=== PATIENT | female | born 1995 | race Caucasian/White ===

== ENCOUNTER → 2017-05-31 | Outpatient (REF) | payer OTHER | LOC: M SFHCLERA 13:53 | PROVIDERS: ATTEND Nurse Practitioner Family | DX: R10.9 Unspecified abdominal pain (principal) ==

== ENCOUNTER 2017-07-20 15:36 | Emergency (ER) | payer OTHER ==
[~2017-07-20] VITALS: Ht 167.6 cm; Wt 80.7 kg
[2017-07-20 15:37] VITALS: BP 145/64
== END 2017-07-20 19:02 | disposition home or self-care (01) ==
LOC: M ED 15:36
DX: J06.9 Acute upper respiratory infection, unspecified (principal); H69.81 Other specified disorders of Eustachian tube, right ear

== ENCOUNTER → 2017-08-24 | Outpatient (REF) | payer OTHER | LOC: M SFHCPLAZ 15:50 | PROVIDERS: ATTEND Nurse Practitioner Family | DX: R35.0 Frequency of micturition (principal); Z11.3 Encounter for screening for infections with a predominantly sexual mode of transmission ==

== ENCOUNTER 2017-09-07 11:08 | Emergency (ER) | payer OTHER ==
[~2017-09-07] VITALS: Ht 167.6 cm; Wt 76.8 kg
[2017-09-07] MEDS ORDERED: PRENTAB55 PO (11:14)
[2017-09-07] MEDS ORDERED: METOCLOPRAMIDE INJ 10MG/2ML VIAL (J2765) IV ONE (11:45)
[2017-09-07] MEDS ORDERED: NS 1,000 ML IV ONE (11:45)
[2017-09-07 11:53] LABS: BASO % 0.4 % (0.0-1.0); EOS # 0.1 10^3/uL (0.0-0.50); EOS % 0.8 % (0.0-3.0); IMMATURE GRANULOCYTE % 0.2 % (0-0); LYMPH # 2.9 10^3/uL (1.5-6.5); LYMPH % 29.9 % (24.0-44.0); MEAN CORPUSCULAR HEMOGLOBIN 30.2 pg (27.0-33.0); MEAN CORPUSCULAR HGB CONC 34.1 g/dl (32.0-36.5); MEAN CORPUSCULAR VOLUME 88.5 fl (80.0-96.0); MONO # 0.6 10^3/uL (0.0-0.8); MONO % 5.9 % (0.0-5.0); NEUTROPHILS # 6.1 10^3/uL (1.8-7.7); NEUTROPHILS % 62.8 % (36.0-66.0); PLATELET COUNT, AUTOMATED 313 10^3/uL (150-450); RED CELL DISTRIBUTION WIDTH 12.5 % (11.5-14.5); WHITE BLOOD COUNT 9.7 10^3/uL (4.0-10.0)
[2017-09-07 12:35] LABS: ALBUMIN 3.8 GM/DL (3.2-5.2); ALBUMIN/GLOBULIN RATIO 1.09 (1.00-1.93); ALKALINE PHOSPHATASE 74 U/L (45-117); ALT/SGPT 11 U/L (12-78); ANION GAP 7 MEQ/L (8-16); AST/SGOT 9 U/L (7-37); BILIRUBIN,TOTAL 0.5 MG/DL (0.2-1.0); BLOOD UREA NITROGEN 7 MG/DL (7-18); CALCIUM LEVEL 9.1 MG/DL (8.5-10.1); CARBON DIOXIDE LEVEL 28 MEQ/L (21-32); CHLORIDE LEVEL 103 MEQ/L (98-107); CREATININE FOR GFR 0.69 MG/DL (0.55-1.02); GLOMERULAR FILTRATION RATE > 60.0 (>60); GLUCOSE, FASTING 79 MG/DL (70-105); HCG, SERUM QUANTITATIVE 46908 MIU/ML; SODIUM LEVEL 138 MEQ/L (136-145); TOTAL PROTEIN 7.3 GM/DL (6.4-8.2)
--- NOTE | 2017-09-07 12:35 | REP ---
First trimester obstetric ultrasound, emergency room request: The study is performed with transabdominal Doppler ultrasound assessment. There are no comparisons. There is an intrauterine gestational sac with a pole. The heart rate is 126 beats per minute. The pole crown-rump length is 0.7 cm corresponding to 6 weeks 4 days gestational age. The RYAN is 04/29/2018. No subchorionic hematoma is identified. The right and left ovaries are normal size. The Doppler resistive index of the intraparenchymal arteries of the left ovary is 0.70 indicating vascular flow in the left ovary. There is no Doppler assessment of the right ovary for reasons known to this examiner. Depending on symptomatology consideration might be given for Doppler assessment of the right ovary. There is no free fluid in the pelvis. Signed by James Marcos MD 09/07/2017 12:27 P
[2017-09-07] MEDS ORDERED: DRAM50TA7 PO (12:53)
[2017-09-07 13:00] VITALS: BP 107/56
== END 2017-09-07 13:10 | disposition home or self-care (01) ==
LOC: M ED 11:08
DX: R11.2 Nausea with vomiting, unspecified (principal)
CPT/HCPCS: 76801; 80053; 81025; 84702; 85025; 93976; 96374; 99284; J2765

== ENCOUNTER → 2017-10-07 | Outpatient (REF) | payer OTHER | LOC: M LAB REF 12:57 | DX: R30.0 Dysuria (principal) ==

== ENCOUNTER 2017-10-11 11:31 | Emergency (ER) | payer OTHER ==
[2017-10-11] MEDS: AZITHROMYCIN 250 MG TAB PO ×2 (13:00)
[2017-10-11] MEDS: cefTRIAXone SOD 250 MG VIAL (J0696) IM ×2 (13:00)
[2017-10-11 16:00] LABS: CHLAMYDIA DNA AMPLIFICATION NEGATIVE (NEGATIVE); GC DNA AMPLIFICATION POSITIVE (NEGATIVE)
== END 2017-10-11 14:04 | disposition home or self-care (01) ==
LOC: M ED 11:31
DX: Z20.2 Contact with and (suspected) exposure to infections with a predominantly sexual mode of transmission (principal); Z3A.00 Weeks of gestation of pregnancy not specified
CPT/HCPCS: J0696

== ENCOUNTER 2018-01-19 18:45 | Emergency (ER) | payer OTHER ==
[2018-01-19] MEDS: valACYclovir HCL 500 MG TAB PO (21:40)
[2018-01-19] MEDS: NORCO 5/325MG TABLET (BULK FOR ED) PO (21:54)
== END 2018-01-19 21:55 | disposition home or self-care (01) ==
LOC: M ED 18:45
DX: A60.09 Herpesviral infection of other urogenital tract (principal)
CPT/HCPCS: 87252

== ENCOUNTER → 2018-03-21 | Outpatient (REF) | payer OTHER ==
[2018-03-21 16:51] LABS: HEMATOCRIT 41.9 % (36.0-47.0); HEMOGLOBIN 13.7 g/dl (12.0-15.5); MEAN CORPUSCULAR HEMOGLOBIN 30.6 pg (27.0-33.0); MEAN CORPUSCULAR HGB CONC 32.7 g/dl (32.0-36.5); MEAN CORPUSCULAR VOLUME 93.5 fl (80.0-96.0); PLATELET COUNT, AUTOMATED 291 10^3/uL (150-450); RED BLOOD COUNT 4.48 10^6/uL (4.00-5.40); RED CELL DISTRIBUTION WIDTH 12.8 % (11.5-14.5); WHITE BLOOD COUNT 8.6 10^3/uL (4.0-10.0)
[2018-03-21 17:10] LABS: ALBUMIN 3.8 GM/DL (3.2-5.2); ALBUMIN/GLOBULIN RATIO 1.19 (1.00-1.93); ALKALINE PHOSPHATASE 69 U/L (45-117); ALT/SGPT 14 U/L (12-78); ANION GAP 7 MEQ/L (8-16); AST/SGOT 6 U/L (7-37); BILIRUBIN,TOTAL 0.2 MG/DL (0.2-1.0); BLOOD UREA NITROGEN 9 MG/DL (7-18); CALCIUM LEVEL 8.6 MG/DL (8.5-10.1); CARBON DIOXIDE LEVEL 27 MEQ/L (21-32); CHLORIDE LEVEL 110 MEQ/L (98-107); CREATININE FOR GFR 0.79 MG/DL (0.55-1.30); FREE T4 0.94 NG/DL (0.76-1.46); GLOMERULAR FILTRATION RATE > 60.0 (>60); GLUCOSE, FASTING 83 MG/DL (70-100); POTASSIUM SERUM 4.8 MEQ/L (3.5-5.1); SODIUM LEVEL 144 MEQ/L (136-145); THYROID STIMULATING HORMONE 0.212 uIU/ML (0.358-3.740)
== END ==
LOC: M SFHCPLAZ 11:22
DX: F33.2 Major depressive disorder, recurrent severe without psychotic features (principal); N92.1 Excessive and frequent menstruation with irregular cycle
CPT/HCPCS: 84443

== ENCOUNTER 2018-03-29 02:40 | Emergency (ER) | payer OTHER ==
[2018-03-29] MEDS: NS 1,000 ML IV (03:09)
[2018-03-29] MEDS: ONDANSETRON 4MG/2ML VIAL (J2405) IV (03:10)
[2018-03-29 03:17] LABS: HEMOGLOBIN 15.1 g/dl (12.0-15.5); MEAN CORPUSCULAR HEMOGLOBIN 30.2 pg (27.0-33.0); MEAN CORPUSCULAR HGB CONC 33.6 g/dl (32.0-36.5); PLATELET COUNT, AUTOMATED 309 10^3/uL (150-450); RED CELL DISTRIBUTION WIDTH 12.4 % (11.5-14.5); WHITE BLOOD COUNT 8.7 10^3/uL (4.0-10.0)
[2018-03-29 03:31] LABS: CONTROL LINE HCG INT CTR LINE PRESENT; HCG, SERUM QUALITATIVE NEGATIVE (NEGATIVE)
[2018-03-29 03:45] LABS: ALBUMIN 4.1 GM/DL (3.2-5.2); ALBUMIN/GLOBULIN RATIO 1.28 (1.00-1.93); ALKALINE PHOSPHATASE 74 U/L (45-117); ALT/SGPT 14 U/L (12-78); ANION GAP 12 MEQ/L (8-16); AST/SGOT 7 U/L (7-37); BILIRUBIN,DIRECT < 0.1 MG/DL (0.0-0.2); BILIRUBIN,TOTAL 0.5 MG/DL (0.2-1.0); BLOOD UREA NITROGEN 7 MG/DL (7-18); CALCIUM LEVEL 8.4 MG/DL (8.5-10.1); CARBON DIOXIDE LEVEL 23 MEQ/L (21-32); CHLORIDE LEVEL 112 MEQ/L (98-107); CREATININE FOR GFR 0.85 MG/DL (0.55-1.30); GLOMERULAR FILTRATION RATE > 60.0 (>60); GLUCOSE, FASTING 98 MG/DL (70-100); POTASSIUM SERUM 3.3 MEQ/L (3.5-5.1); SALICYLATE LEVEL 1.9 MG/DL (5.0-30.0); SODIUM LEVEL 147 MEQ/L (136-145); THYROID STIMULATING HORMONE 0.411 uIU/ML (0.358-3.740); TOTAL PROTEIN 7.3 GM/DL (6.4-8.2)
[2018-03-29 03:50] LABS: ACETAMINOPHEN LEVEL < 2.0 UG/ML (10.0-30.0)
[2018-03-29] MEDS: POTASSIUM CHLORIDE 10 MEQ SR TABLET PO (05:28)
[2018-03-29 06:06] LABS: AMPHETAMINES LEVEL URINE NEGATIVE (NEGATIVE); BARBITURATES URINE NEGATIVE (NEGATIVE); BENZODIAZEPINES URINE NEGATIVE (NEGATIVE); CANNABINOIDS URINE POSITIVE (NEGATIVE); COCAINE METABOLITE URINE NEGATIVE (NEGATIVE); METHADONE URINE NEGATIVE (NEGATIVE); OPIATES URINE NEGATIVE (NEGATIVE); PHENCYCLIDINE URINE NEGATIVE (NEGATIVE)
== END 2018-03-29 09:24 | disposition home or self-care (01) ==
LOC: M ED 02:40
DX: F10.229 Alcohol dependence with intoxication, unspecified (principal)
CPT/HCPCS: J2405

== ENCOUNTER → 2018-04-05 | Outpatient (REF) | payer OTHER ==
[2018-04-05 15:56] LABS: ANION GAP 5 MEQ/L (8-16); BLOOD UREA NITROGEN 10 MG/DL (7-18); CALCIUM LEVEL 8.6 MG/DL (8.5-10.1); CARBON DIOXIDE LEVEL 29 MEQ/L (21-32); CHLORIDE LEVEL 108 MEQ/L (98-107); CREATININE FOR GFR 0.78 MG/DL (0.55-1.30); FREE T4 0.92 NG/DL (0.76-1.46); GLOMERULAR FILTRATION RATE > 60.0 (>60); GLUCOSE, FASTING 81 MG/DL (70-100); POTASSIUM SERUM 4.4 MEQ/L (3.5-5.1); SODIUM LEVEL 142 MEQ/L (136-145); THYROID PEROXIDASE ANTIBODY < 28.0 U/ML (<60.0); THYROID STIMULATING HORMONE 0.281 uIU/ML (0.358-3.740); TOTAL T3 111.4 NG/DL (60.0-181.0)
== END ==
LOC: M SFHCPLAZ 12:28
DX: E05.90 Thyrotoxicosis, unspecified without thyrotoxic crisis or storm (principal); E87.6 Hypokalemia
CPT/HCPCS: 84443

== ENCOUNTER 2018-04-14 12:45 | Emergency (ER) | payer OTHER ==
[2018-04-14 14:04] LABS: KETONE, URINE AUTO RFX NEGATIVE (NEGATIVE); LEUKOCYTE ESTERASE UR AUTO RFX NEGATIVE (NEGATIVE); MUCUS, URINE RFX SMALL (NEGATIVE); NITRITE, URINE AUTO RFX NEGATIVE (NEGATIVE); RBC, URINE AUTO RFX 1 /HPF (0-3); SPECIFIC GRAVITY UR AUTO RFX 1.023 (1.002-1.035); SQUAM EPITHELIAL CELL UR AURFX 2 /HPF (0-6); WBC, URINE AUTO RFX 0 /HPF (0-3)
[2018-04-14 14:20] LABS: BASO # 0.1 10^3/uL (0.0-0.2); BASO % 0.7 % (0.0-1.0); EOS # 0.2 10^3/uL (0.0-0.50); EOS % 2.4 % (0.0-3.0); HEMATOCRIT 41.1 % (36.0-47.0); HEMOGLOBIN 13.5 g/dl (12.0-15.5); IMMATURE GRANULOCYTE % 0.3 % (0-3.0); LYMPH # 3.1 10^3/uL (1.5-6.5); LYMPH % 41.1 % (24.0-44.0); MEAN CORPUSCULAR HEMOGLOBIN 30.5 pg (27.0-33.0); MEAN CORPUSCULAR HGB CONC 32.8 g/dl (32.0-36.5); MONO # 0.5 10^3/uL (0.0-0.8); NEUTROPHILS # 3.7 10^3/uL (1.8-7.7); NEUTROPHILS % 49.5 % (36.0-66.0); PLATELET COUNT, AUTOMATED 271 10^3/uL (150-450); RED BLOOD COUNT 4.42 10^6/uL (4.00-5.40); RED CELL DISTRIBUTION WIDTH 12.9 % (11.5-14.5); WHITE BLOOD COUNT 7.5 10^3/uL (4.0-10.0)
[2018-04-14 14:37] LABS: ANION GAP 5 MEQ/L (8-16); BLOOD UREA NITROGEN 10 MG/DL (7-18); CALCIUM LEVEL 8.6 MG/DL (8.5-10.1); CARBON DIOXIDE LEVEL 28 MEQ/L (21-32); CHLORIDE LEVEL 110 MEQ/L (98-107); CREATININE FOR GFR 0.79 MG/DL (0.55-1.30); GLOMERULAR FILTRATION RATE > 60.0 (>60); GLUCOSE, FASTING 87 MG/DL (70-100); POTASSIUM SERUM 4.4 MEQ/L (3.5-5.1); SODIUM LEVEL 143 MEQ/L (136-145)
== END 2018-04-14 16:22 | disposition home or self-care (01) ==
LOC: M ED 12:45
DX: N93.8 Other specified abnormal uterine and vaginal bleeding (principal); F41.9 Anxiety disorder, unspecified; F33.9 Major depressive disorder, recurrent, unspecified; Z79.899 Other long term (current) drug therapy
CPT/HCPCS: 76856

== ENCOUNTER → 2018-10-19 | Outpatient (REF) | payer OTHER ==
[~2018-10-19] MED LIST: BUPR150T3 PO; DRAM50TA7 PO; KLOR20TA42 FT; PRENTAB55 PO; VALT1TAB PO; [UNRECOGNIZED DRUG - CODE] OR
[2018-10-19 18:22] LABS: BASO # 0.1 10^3/uL (0.0-0.2); BASO % 0.5 % (0.0-1.0); EOS # 0.1 10^3/uL (0.0-0.50); EOS % 0.7 % (0.0-3.0); HEMATOCRIT 40.2 % (36.0-47.0); HEMOGLOBIN 13.8 g/dl (12.0-15.5); LYMPH # 3.4 10^3/uL (1.5-6.5); LYMPH % 27.1 % (24.0-44.0); MEAN CORPUSCULAR HEMOGLOBIN 30.6 pg (27.0-33.0); MEAN CORPUSCULAR HGB CONC 34.3 g/dl (32.0-36.5); MEAN CORPUSCULAR VOLUME 89.1 fl (80.0-96.0); MONO # 0.8 10^3/uL (0.0-0.8); MONO % 6.1 % (0.0-5.0); NEUTROPHILS # 8.2 10^3/uL (1.8-7.7); NEUTROPHILS % 65.3 % (36.0-66.0); PLATELET COUNT, AUTOMATED 297 10^3/uL (150-450); RED BLOOD COUNT 4.51 10^6/uL (4.00-5.40); WHITE BLOOD COUNT 12.6 10^3/uL (4.0-10.0)
[2018-10-19 18:40] LABS: FREE T4 1.11 NG/DL (0.76-1.46); THYROID STIMULATING HORMONE 0.064 uIU/ML (0.358-3.740)
[2018-10-19 20:52] LABS: CHLAMYDIA DNA AMPLIFICATION NEGATIVE (NEGATIVE); GC DNA AMPLIFICATION NEGATIVE (NEGATIVE)
[2018-10-20 10:41] LABS: RUBELLA IgG QUALITATIVE IMMUNE (IMMUNE)
[2018-10-20 11:11] LABS: HIV 1&2 SCREEN CENTAUR NEGATIVE (NEGATIVE)
== END ==
LOC: M LAB REF 17:01
PROVIDERS: ATTEND Advanced Practice Midwife
DX: Z3A.09 9 weeks gestation of pregnancy (principal)

== ENCOUNTER 2018-10-22 10:57 | Emergency (ER) | payer OTHER ==
[~2018-10-22] VITALS: Ht 167.6 cm; Wt 73.6 kg
[2018-10-22] MEDS ORDERED: PRENTAB55 PO (11:01)
[2018-10-22 12:00] VITALS: BP 118/60
== END 2018-10-22 12:05 | disposition home or self-care (01) ==
LOC: M ED 10:57
DX: S83.006A Unspecified dislocation of unspecified patella, initial encounter (principal); W10.9XXA Fall (on) (from) unspecified stairs and steps, initial encounter; Y92.019 Unspecified place in single-family (private) house as the place of occurrence of the external cause

== ENCOUNTER → 2018-12-10 | Outpatient (REF) | payer OTHER ==
[~2018-12-10] MED LIST changes: +AMOX500C PO; +SM; +SM N120T
== END ==
LOC: M SFHCLERA 13:37
PROVIDERS: ATTEND Nurse Practitioner Family
DX: J00 Acute nasopharyngitis [common cold] (principal)

== ENCOUNTER 2018-12-14 11:16 | Emergency (ER) | payer OTHER ==
[~2018-12-14] VITALS: Ht 167.6 cm; Wt 75.2 kg
[~2018-12-14 11:16] MED LIST changes: -AMOX500C PO; -SM; -SM N120T
[2018-12-14] MEDS ORDERED: SM (11:22)
[2018-12-14] MEDS ORDERED: SM N120T (11:22)
[2018-12-14 12:31] LABS: INFLUENZA A AMPLIFICATION NEGATIVE (NEGATIVE); INFLUENZA B AMPLIFICATION NEGATIVE (NEGATIVE)
[2018-12-14] MEDS ORDERED: AMOX500C PO (13:21)
[2018-12-14 13:27] VITALS: BP 116/68
== END 2018-12-14 13:28 | disposition home or self-care (01) ==
LOC: M ED 11:16
DX: O99.512 Diseases of the respiratory system complicating pregnancy, second trimester (principal); J01.90 Acute sinusitis, unspecified; O99.89 Other specified diseases and conditions complicating pregnancy, childbirth and the puerperium; H65.01 Acute serous otitis media, right ear; Z3A.18 18 weeks gestation of pregnancy; Z79.899 Other long term (current) drug therapy

== ENCOUNTER 2019-01-21 16:04 | Emergency (ER) | payer OTHER ==
[~2019-01-21] VITALS: Ht 167.6 cm; Wt 77.3 kg
[~2019-01-21 16:04] MED LIST changes: +AMOX500C PO; +SM; +SM N120T
--- NOTE | 2019-01-21 17:42 | REPVR ---
EXAM: US Soft Tissue Head and Neck, Non Thyroid EXAM DATE/TIME: 01/21/2019 5:02 PM CLINICAL HISTORY: 23 years old, female; Neck pain; Patient HX: Lump & redness on left side of neck, no drainage noted; Additional info: RO abscess, left side neck TECHNIQUE: Imaging protocol: Real-time ultrasound scan of the soft tissues of the left neck with image documentation. COMPARISON: No relevant prior studies available. FINDINGS: Soft tissues: Imaging of the lateral aspect of the left neck in the area of palpable abnormality demonstrates a well-circumscribed hypoechoic complex density within the subcutaneous fat measuring 1.1 x 0.6 x 1.0cm. No significant internal vascularity demonstrated on color flow Doppler. IMPRESSION: Complex hypoechoic nodule in the soft tissues of the lateral neck as described above. Considerations include a lymph node, small abscess, or apocrine retention cyst (infected or noninfected). Electronically signed by: Justice Trivedi On 01/21/2019 17:42:22 PM
[2019-01-21] MEDS ORDERED: KEFL500C17 PO (18:21)
[2019-01-21] MEDS ORDERED: CEPHALEXIN 500 MG CAP PO ONE (18:30)
[2019-01-21 18:36] VITALS: BP 109/59
--- NOTE | 2019-01-22 09:05 | ED PDOC ---
Post-Departure Follow-Up joce thomas faxed formal report of thyroid us for fu Alex Joseph MD Jan 22, 2019 09:05
== END 2019-01-21 18:37 | disposition home or self-care (01) ==
LOC: M ED 16:04
DX: O99.712 Diseases of the skin and subcutaneous tissue complicating pregnancy, second trimester (principal); L03.221 Cellulitis of neck; R22.1 Localized swelling, mass and lump, neck; Z3A.23 23 weeks gestation of pregnancy; E05.00 Thyrotoxicosis with diffuse goiter without thyrotoxic crisis or storm

== ENCOUNTER → 2019-02-08 | Outpatient (CLI) | payer OTHER ==
[~2019-02-08] MED LIST changes: +KEFL500C17 PO
--- NOTE | 2019-02-09 16:29 | REP ---
Clinical: Anatomical evaluation. Comparison: 12/13/2018 . Findings: Examination demonstrates a single live intrauterine in transverse (head to maternal left) presentation. motion is identified by technologist. Placenta is noted posterior fundal and grade grade 1 without evidence for placenta previa or abruption. Amniotic fluid volume is normal. Cervix measures 4.2 cm in length and appears closed. Nuchal cord cannot be excluded. Gestational age by LMP 26 weeks 4 days with RYAN 05/13/2019 . Gestational age by current measurements 20 weeks 2 days with RYAN 05/15/2019 . FHR equals 167 beats per minute. Estimated weight 909 grams ( 33rd percentile). Anatomical assessment demonstrates normal structures including cranium, choroid plexus, cavum, cerebellum/posterior fossa, facial features, lungs, four-chamber heart/ventricular outflow tracts, diaphragm, stomach, cord insertion/three-vessel cord, kidneys/bladder, spine, and extremities. Impression: 1. Single live intrauterine in transverse lie demonstrating appropriate interval growth. Anatomical assessment is complete and normal. 2. Nuchal cord cannot be excluded. Electronically Signed by Dmitir Beach MD 02/09/2019 04:21 P
== END ==
LOC: M RAD 13:30
PROVIDERS: ATTEND Advanced Practice Midwife
DX: Z36.89 Encounter for other specified antenatal screening (principal); Z3A.20 20 weeks gestation of pregnancy

== ENCOUNTER → 2019-02-26 | Outpatient (REF) | payer OTHER, MEDICAID | LOC: M LAB REF 17:06 | PROVIDERS: ATTEND Advanced Practice Midwife | DX: O99.282 Endocrine, nutritional and metabolic diseases complicating pregnancy, second trimester (principal); Z3A.00 Weeks of gestation of pregnancy not specified ==

== ENCOUNTER → 2019-02-26 | Outpatient (CLI) | payer OTHER ==
[2019-02-26 17:25] LABS: FREE T4 0.82 NG/DL (0.76-1.46); THYROID STIMULATING HORMONE 0.693 uIU/ML (0.358-3.740)
[2019-02-26 17:27] LABS: HEMATOCRIT 35.9 % (36.0-47.0); HEMOGLOBIN 11.7 g/dl (12.0-15.5); MEAN CORPUSCULAR HEMOGLOBIN 32.2 pg (27.0-33.0); MEAN CORPUSCULAR HGB CONC 32.6 g/dl (32.0-36.5); MEAN CORPUSCULAR VOLUME 98.9 fl (80.0-96.0); PLATELET COUNT, AUTOMATED 234 10^3/uL (150-450); RED BLOOD COUNT 3.63 10^6/uL (4.00-5.40); WHITE BLOOD COUNT 11.3 10^3/uL (4.0-10.0)
== END ==
LOC: M SMT 13:24
PROVIDERS: ATTEND Advanced Practice Midwife
DX: O99.282 Endocrine, nutritional and metabolic diseases complicating pregnancy, second trimester (principal); Z3A.00 Weeks of gestation of pregnancy not specified

== ENCOUNTER 2019-03-29 17:28 | Outpatient (CLI) | payer OTHER, MEDICAID ==
[~2019-03-29] VITALS: Ht 167.6 cm; Wt 90.5 kg
[2019-03-29 17:42] VITALS: BP 116/70
[2019-03-29] MEDS ORDERED: MAPA500T2 PO (17:43)
[2019-03-29 20:52] LABS: APPEARANCE, URINE CLOUDY (CLEAR); BACTERIA, URINE AUTO 2+ (NEGATIVE); BILIRUBIN, URINE AUTO NEGATIVE (NEGATIVE); BLOOD, URINE BLOOD NEGATIVE (NEGATIVE); COLOR, URINE YELLOW (YELLOW); GLUCOSE, URINE (UA) AUTO NEGATIVE (NEGATIVE); KETONE, URINE AUTO TRACE mg/dL (NEGATIVE); LEUKOCYTE ESTERASE, URINE AUTO 3+ (NEGATIVE); MUCUS, URINE SMALL (NEGATIVE); NITRITE, URINE AUTO NEGATIVE (NEGATIVE); PROTEIN, URINE AUTO NEGATIVE (NEGATIVE); RBC, URINE AUTO 3 /HPF (0-3); SPECIFIC GRAVITY URINE AUTO 1.013 (1.002-1.035); SQUAMOUS EPITHELIAL CELL UR AU 41 /HPF (0-6); UROBILINOGEN, URINE AUTO 0.2 mg/dL (0.0-2.0); WBC, URINE AUTO 35 /HPF (0-3)
== END 2019-03-29 21:40 | disposition home or self-care (01) ==
LOC: M LDO 17:28
PROVIDERS: ATTEND Obstetrics & Gynecology
DX: O26.893 Other specified pregnancy related conditions, third trimester (principal); R10.2 Pelvic and perineal pain; Z3A.39 39 weeks gestation of pregnancy

== ENCOUNTER 2019-04-18 12:30 | Outpatient (RCR) | payer OTHER ==
[~2019-04-18 12:30] MED LIST changes: +MAPA500T2 PO
== END 2019-04-25 ==
LOC: M PT 12:30
PROVIDERS: ATTEND Advanced Practice Midwife
DX: O26.893 Other specified pregnancy related conditions, third trimester (principal); Z3A.33 33 weeks gestation of pregnancy; R10.2 Pelvic and perineal pain

== ENCOUNTER → 2019-04-24 | Outpatient (REF) | payer OTHER, MEDICAID | LOC: M LAB REF 16:57 | PROVIDERS: ATTEND Advanced Practice Midwife | DX: Z34.83 Encounter for supervision of other normal pregnancy, third trimester (principal) ==

== ENCOUNTER → 2019-04-24 | Outpatient (REF) | payer OTHER, MEDICAID ==
[2019-04-25 16:32] LABS: CHLAMYDIA DNA AMPLIFICATION NEGATIVE (NEGATIVE); GC DNA AMPLIFICATION NEGATIVE (NEGATIVE)
== END ==
LOC: M LAB REF 13:14
PROVIDERS: ATTEND Advanced Practice Midwife
DX: Z34.83 Encounter for supervision of other normal pregnancy, third trimester (principal)

== ENCOUNTER 2019-05-16 06:51 | Inpatient (IN) | payer OTHER, MEDICAID ==
[~2019-05-16] VITALS: Ht 167.6 cm; Wt 95.6 kg
[2019-05-16] VITALS (21 sets, daily range): BP systolic 100–133; BP diastolic 53–83
[2019-05-16] MEDS: miSOPROStol 50 MCG 1/2 TAB (S0191) PO SCH ×2 (08:06→12:17)
[2019-05-16 08:18] LABS: HEMATOCRIT 34.4 % (36.0-47.0); MEAN CORPUSCULAR HEMOGLOBIN 32.7 pg (27.0-33.0); MEAN CORPUSCULAR HGB CONC 34.9 g/dl (32.0-36.5); MEAN CORPUSCULAR VOLUME 93.7 fl (80.0-96.0); PLATELET COUNT, AUTOMATED 202 10^3/uL (150-450); RED BLOOD COUNT 3.67 10^6/uL (4.00-5.40); WHITE BLOOD COUNT 11.4 10^3/uL (4.0-10.0)
[2019-05-16] MEDS ORDERED: VALT1TAB PO (08:40)
--- NOTE | 2019-05-16 10:00 | HPE ---
DATE OF ADMISSION: 05/16/2019 Marie is a 23-year-old , 3, para 1-0-1-1, 39-1/7 weeks gestation, estimated date of confinement (EDC) of 05/22/2019, based on LNMP and confirmed by first trimester ultrasound. She presents to labor and delivery today for induction of labor due to social reasons. Her care was initiated at [facility] in the first trimester. Her course has been complicated by a reported history of hyperthyroid. She has been seen by endocrinology at [facility]. Her thyroid labs have been normal throughout her . HSV II, she started prophylactic treatment at approximately 37 weeks, and uncertain paternity; however, she does have a partner at bedside and he is supportive. She denies any contractions, vaginal bleeding, and leakage of fluid. Fetus has been active. PAST MEDICAL HISTORY: Hyperthyroid, per report; however, labs have been normal and she is not taking any medication. SURGERIES: Tonsillectomy. Elective termination of . FAMILY HISTORY: Cancer, thyroid disease, lupus, and MS. SOCIAL HISTORY: The patient is single. She does have a person present for support. She is a nonsmoker. Denies alcohol and drug use. She has a history of chlamydia and HSV II. She denies any history of abuse, physical, sexual, and emotional. ALLERGIES: No drug allergies. CURRENT MEDICATIONS: - valacyclovir 1 gram per day - vitamin OBJECTIVE: Temperature 97.6, pulse 103, respirations 18, blood pressure is 116/70. heart rate is 145, moderate variability, positive accelerations, no decelerations. She has an occasional contraction. Her abdomen is gravid, cephalic presentation. Estimated weight 7-1/2 pounds. STERILE VAGINAL EXAM: 2 cm, 50% effaced, -3 station. Very posterior, soft, scant show with exam. ASSESSMENT: Intrauterine at 39-1/7 weeks. heart rate category 1. PLAN: Admit patient to labor and delivery today for induction of labor. Routine labs. Out of bed ad david. Regular diet at this time. Start misoprostol 50 mcg by mouth for cervical ripening. The patient is desirous of an epidural once she is in active labor. I did review risks, benefits, and alternatives. The patient's questions have been answered. She has been verbally consented for emergency surgery and blood products if necessary. I do anticipate cervical ripening. I will consider artificial rupture of membranes (AROM) once she is comfortable with an epidural. CARLOS A
[2019-05-16] MEDS ORDERED: LACTATED RINGER'S 1000 ML IV ONE (16:15)
[2019-05-16] MEDS ORDERED: OXYTOCIN DRIP 30 UNITS in APPROPRIATE DILUENT 1 EA IV SCH (18:30)
[2019-05-16] MEDS: LR 1,000 ML IV SCH ×2 (18:47→23:20)
[2019-05-16] MEDS ORDERED: FENTANYL 2MCG/ML ROPIVACAINE 0.2% IN 0.9% NACL 100ML IVBAG As Ordered ONE (23:29)
[2019-05-17] VITALS (33 sets, daily range): BP systolic 93–137; BP diastolic 53–85
[2019-05-17] MEDS ORDERED: ePHEDrine SULFATE 25 MG/5 ML(5MG/ML) SYRINGE IV PRN (01:00)
[2019-05-17] MEDS ORDERED: ONDANSETRON 4MG/2ML VIAL (J2405) IV PRN (01:00)
[2019-05-17] MEDS ORDERED: FENTANYL/ROPIVACAINE/NACL BAG 100 ML EPIDURAL SCH (01:00)
[2019-05-17] MEDS ORDERED: REFRIGERATOR IV KEYS XX PRN (01:00)
[2019-05-17] MEDS ORDERED: EPIDURAL/PCA KEYS XX PRN (01:00)
[2019-05-17] MEDS ORDERED: LACTATED RINGER'S 1000 ML IV PRN (01:00)
[2019-05-17] MEDS ORDERED: NALOXONE INJ 0.4 MG/1 ML VIAL (J2310) IV PRN (01:00)
[2019-05-17] MEDS ORDERED: diphenhydrAMINE INJ 50MG/ML VIAL (J1200) IV PRN (01:00)
[2019-05-17] MEDS ORDERED: EPIDURAL COMMENT XX SCH (01:00)
[2019-05-17] MEDS ORDERED: OXYTOCIN DRIP 30 UNITS in APPROPRIATE DILUENT 1 EA IV SCH (05:31)
[2019-05-17] MEDS ORDERED: METHYLERGONOVINE MALEATE 0.2 MG TAB PO PRN (05:45)
[2019-05-17] MEDS ORDERED: ACETAMINOPHEN TAB 650MG DOSE (2X325MG) PO PRN (05:45)
[2019-05-17] MEDS ORDERED: DIBUCAINE 1% OINTMENT 30GM TOP PRN (05:45)
[2019-05-17] MEDS ORDERED: MEASLES,MUMPS,RUBELLA VACCINE INJ (MMR-II) (90707) SC SCH (05:45)
[2019-05-17] MEDS ORDERED: DOCUSATE SODIUM 100 MG CAP PO PRN (05:45)
[2019-05-17] MEDS ORDERED: IBUPROFEN 800 MG TAB PO PRN (05:45)
[2019-05-17] MEDS ORDERED: IBUPROFEN 600 MG TAB PO PRN (05:45)
[2019-05-17] MEDS ORDERED: RHOGAM 300 MCG (1500 IU) INJ (J2790) IM SCH (05:45)
--- NOTE | 2019-05-17 07:43 | DN ---
DATE: 05/17/2019 Marie is a 23-year-old 3, para 2-0-1-2 now admitted to labor and delivery for induction of labor. Misoprostol and IV Pitocin was used and labor did ensue. She utilized an epidural to cope with her labor. She reached full dilation at 0445. She pushed to a normal spontaneous vaginal delivery of a live male in occipitoanterior (OA) position with restitution to left occiput transverse (LOT) position at 05:05. There was no nuchal cord. Shoulders delivered spontaneously and the corpus immediately followed. [place] was placed on abdomen crying and active. Mouth and nares were bulb suctioned. Cord was clamped times two once pulsations ceased and cut by the grandmother. Spontaneous expulsion of an intact placenta with three-vessel cord by Post mechanism was at 0512. Uterine hemostasis achieved with IV Pitocin rapid infusion and uterine fundal massage. Estimated blood loss 250 mL. Perineum and vagina inspected and noted have a right labial laceration. Laceration was repaired with #3-0 Rapide in the usual fashion. [place] male weighed 7 pounds 14 ounces, 3570 grams, scores 9 and 9. Mom is going to breastfeed her son and family have named him Singh. At the close of delivery lap counts, needle counts, and instrument counts were correct and verified.
[2019-05-17] MEDS: PRENATAL VITAMINS CHEWABLE TABLET PO SCH (08:40)
[2019-05-17] MEDS: ACETAMINOPHEN 500 MG TAB PO PRN ×2 (13:26→18:52)
[2019-05-18 06:00] VITALS: BP 109/56
[2019-05-18] MEDS ORDERED: IBUP80TA PO (08:21)
[2019-05-18] MEDS ORDERED: ACET-683 PO (08:21)
[2019-05-18] MEDS ORDERED: ADACEL/BOOSTRIX VACCINE (DIPHTH/PERTUSS/ACELL/TETANUS)0.5ML SYR (90715) IM ONE (09:00)
[2019-05-18] MEDS: ACETAMINOPHEN 500 MG TAB PO PRN (09:11)
[2019-05-18] MEDS: PRENATAL VITAMINS CHEWABLE TABLET PO SCH (11:50)
== END 2019-05-18 19:10 | disposition home or self-care (01) | DRG 560 ==
LOC: M LDI 06:51 → M OBS 05-17 07:30
PROVIDERS: ADMIT Advanced Practice Midwife; ATTEND Advanced Practice Midwife
PROC: 10E0XZZ Delivery of Products of Conception, External Approach (ICD-10-PCS; principal; 2019-05-17)
PROC: 3E0P7GC Introduction of Other Therapeutic Substance into Female Reproductive, Via Natural or Artificial Opening (ICD-10-PCS; 2019-05-17)
PROC: 0HQ9XZZ Repair Perineum Skin, External Approach (ICD-10-PCS; 2019-05-17)
PROC: 10907ZC Drainage of Amniotic Fluid, Therapeutic from Products of Conception, Via Natural or Artificial Opening (ICD-10-PCS; 2019-05-17)
DX: O70.0 First degree perineal laceration during delivery (principal); Z3A.39 39 weeks gestation of pregnancy; Z37.0 Single live birth; Z86.19 Personal history of other infectious and parasitic diseases

== ENCOUNTER 2020-03-19 19:23 | Inpatient (IN) | payer MEDICAID, OTHER ==
[~2020-03-19] VITALS: Ht 165.1 cm; Wt 72.7 kg
[~2020-03-19 19:23] MED LIST changes: +ACET-683 PO; -BUPR150T3 PO; +BUPR150T4 PO; +IBUP80TA PO
[2020-03-19 20:21] LABS: HEMATOCRIT 41.2 % (36.0-47.0); HEMOGLOBIN 13.3 g/dl (12.0-15.5); MEAN CORPUSCULAR HGB CONC 32.3 g/dl (32.0-36.5); MEAN CORPUSCULAR VOLUME 92.8 fl (80.0-96.0); PLATELET COUNT, AUTOMATED 291 10^3/uL (150-450); RED BLOOD COUNT 4.44 10^6/uL (4.00-5.40); WHITE BLOOD COUNT 11.1 10^3/uL (4.0-10.0)
[2020-03-19 20:37] LABS: AMPHETAMINES LEVEL URINE NEGATIVE (NEGATIVE); BARBITURATES URINE NEGATIVE (NEGATIVE); BENZODIAZEPINES URINE NEGATIVE (NEGATIVE); CANNABINOIDS URINE POSITIVE (NEGATIVE); COCAINE METABOLITE URINE NEGATIVE (NEGATIVE); METHADONE URINE NEGATIVE (NEGATIVE); OPIATES URINE NEGATIVE (NEGATIVE); PHENCYCLIDINE URINE NEGATIVE (NEGATIVE)
[2020-03-19 20:40] LABS: HCG, SERUM QUALITATIVE NEGATIVE (NEGATIVE)
[2020-03-19 20:48] LABS: ACETAMINOPHEN LEVEL < 2.0 UG/ML (10.0-30.0); ALBUMIN 3.8 GM/DL (3.2-5.2); ALT/SGPT 11 U/L (12-78); BILIRUBIN,DIRECT 0.1 MG/DL (0.0-0.2); BILIRUBIN,TOTAL 0.3 MG/DL (0.2-1.0); BLOOD UREA NITROGEN 8 MG/DL (7-18); CALCIUM LEVEL 8.9 MG/DL (8.5-10.1); CARBON DIOXIDE LEVEL 27 MEQ/L (21-32); CHLORIDE LEVEL 108 MEQ/L (98-107); CREATININE FOR GFR 0.87 MG/DL (0.55-1.30); ETHYL ALCOHOL (ETHANOL) < 0.003 % (0.000-0.010); GLOMERULAR FILTRATION RATE > 60.0 (>60); GLUCOSE, FASTING 87 MG/DL (70-100); SODIUM LEVEL 142 MEQ/L (136-145); THYROID STIMULATING HORMONE 0.893 uIU/ML (0.358-3.740); TOTAL PROTEIN 6.9 GM/DL (6.4-8.2)
[2020-03-20] MEDS ORDERED: ACETAMINOPHEN 500 MG TAB PO ONE (01:45)
[2020-03-20] MEDS ORDERED: traZODone 50 MG TAB PO PRN (02:15)
[2020-03-20] MEDS ORDERED: OLANZapine ORAL DISINTEGRATING TAB 5MG PO PRN (02:15)
[2020-03-20] MEDS ORDERED: MOM 30ML SUSPENSION UDC PO PRN (02:15)
[2020-03-20] MEDS ORDERED: MAALOX 30 ML SUSP *UDC PO PRN (02:15)
[2020-03-20] MEDS ORDERED: ACETAMINOPHEN TAB 650MG DOSE (2X325MG) PO PRN (02:15)
[2020-03-20] MEDS ORDERED: ACET-683 PO (02:16)
[2020-03-20] MEDS ORDERED: IBUP-1720 PO (02:16)
[2020-03-20 03:59] VITALS: BP 142/87
--- NOTE | 2020-03-20 09:47 | MHHPEPDOC ---
[facility] History & Physical History and Physical DATE OF ADMISSION: Mar 20, 2020 at 02:03 HPI: Marie is 24 year old presents after making suicidal statements. She also reports a family dispute with her mother. Marie reports that her mother spoke to the police about her suicidal behavior and harming her children. She also reports that due to her mother false accusations and aggressive behavior. She admits to throwing a phone and breaking a mug. Marie reports that mother becomes hysterical and used physical aggression against her, but denies being aggressive towards the mother. She is very upset during discussion and leaves after a short time Allergies: below Past Psychhx: no notable in chart Fmhx: unknown Sochx: lives with mother with a children. Objective Behavior: Uninterested. Argumentative. Mood: Irritable. Thought Form: Linear and goal directed. Thought Content: Evidence of aggressive or homicidal ideation. Judgement: Poor. Insight: Poor. Assessment F32.9 Major depressive disorder, single episode, unspecified Plan Marie is currently in an Involuntary Commitment on a Psych Unit, but has to sign the release form from a [employer] Party. Defer Medication at this time as it is unclear for presenting problems have be en. Observe overnight before deciding if needs to stay longer. Patient estimated stay is up to 2 to 3 days. Patient treatment indicates risk of suicide and ineffective coping. Vital Signs Vital Signs Date Time Temp Pulse Resp B/P (MAP) Pulse Ox O2 Delivery O2 Flow Rate FiO2 03/20/20 03:59 97.5 82 18 142/87 (105) 98 Room Air Laboratory Data 24H Labs Laboratory Tests 2 03/19/20 19:44: Nucleated Red Blood Cells % (auto) 0.0, Anion Gap 7L, Glomerular Filtration Rate > 60.0, Calcium Level 8.9, Total Bilirubin 0.3, Direct Bilirubin 0.1, Aspartate Amino Transf (AST/SGOT) 8, Alanine Aminotransferase (ALT/SGPT) 11L, Alkaline Phosphatase 74, Total Protein 6.9, Albumin 3.8, Albumin/Globulin Ratio 1.2, Thyroid Stimulating Hormone (TSH) 0.893, Human Chorionic Gonadotropin, Qual NEGATIVE, Salicylates Level 3.0L, Urine Opiates Screen NEGATIVE, Urine Methadone Screen NEGATIVE, Acetaminophen Level < 2.0L, Urine Barbiturates Screen NEGATIVE, Urine Phencyclidine Screen NEGATIVE, Urine Amphetamines Screen NEGATIVE, Urine Benzodiazepines Screen NEGATIVE, Urine Cocaine Metabolite Screen NEGATIVE, Urine Cannabinoids Screen POSITIVEH, Ethyl Alcohol Level < 0.003 CBC/BMP Laboratory Tests 03/19/20 19:44 Medications Scheduled [id number]/Iron Fum/Folic/Docusate ( 19 Tablet) 1 Tab Tab, 1 TAB PO DAILY, (Reported) Scheduled PRN Acetaminophen (Acetaminophen) 500 Mg Tablet, 1,000 MG PO Q6H PRN for PAIN, (Reported) Ibuprofen (Ibuprofen) 200 Mg Tablet, 600 MG PO QID PRN for PAIN, (Reported) Allergies Coded Allergies: No Known Allergies (Unverified , 09/24/18) ANSHUL MARQUEZ DO Mar 20, 2020 09:47
[2020-03-20] MEDS ORDERED: diphenhydrAMINE 25MG CAP PO ONE ×2 (10:00→22:05)
--- NOTE | 2020-03-20 13:14 | HPEPDOC ---
General Date of Admission Mar 20, 2020 at 02:03 Date of Service: Mar 20, 2020 Chief Complaint The patient is a 24-year-old female admitted with a reason for visit of Unspecified Depressive Disorder. Source: Patient Exam Limitations: No limitations Timing/Duration: Other (2 months) Severity: Moderate Associated Symptoms: Other (suicidal thoughts) History of Present Illness 24 years old female with past medical history of depression, questionable hypothyroidism, status post tonsillectomy and elective termination of . She is 3, para 2, and aborto 1, patient had a argument with her mother and she told her she will go jump in the liver and kill herself. Later [place] was [place] and was brought to emergency room. Patient is comfortable offers no medical complaints at the present time Home Medications Scheduled [id number]/Iron Fum/Folic/Docusate ( 19 Tablet) 1 Tab Tab, 1 TAB PO DAILY, (Reported) Scheduled PRN Acetaminophen (Acetaminophen) 500 Mg Tablet, 1,000 MG PO Q6H PRN for PAIN, (Reported) Ibuprofen (Ibuprofen) 200 Mg Tablet, 600 MG PO QID PRN for PAIN, (Reported) Allergies Coded Allergies: No Known Allergies (Unverified , 09/24/18) Past Medical History Medical History History of hypothyroidism in the past but on no medications Surgical History Tonsillectomy, and termination of . Family History Cancer tolerated and lupus on mother's side Social History * Smoker: Denies Alcohol: Denies Drugs: marijuana A-FIB/CHADSVASC A-FIB History Current/History of A-Fib/PAF?: No Review of Systems Constitutional: Denies: Chills, Fever, Malaise, Night Sweats, Weakness, Fatigue, Weight Loss, Lethargy, Other Eyes: Denies: Pain, Vision change, Conjunctivae inflammation, Eyelid inflammation, Redness, Other ENT: Denies: Head Aches, Ear Pain, Dysphagia, Sinus Congestion, Post Nasal Drip, Sore Throat, Epistaxis, Other Symptoms Skin: Denies: Rash, Lesions, Jaundice, Bruising, Itching, Dry, Breakdown, Nail Changes, Other Pulmonary: Denies: Dyspnea, Cough, Pleuritic Chest Pain, Other Symptoms Cardiovascular: Denies: Chest Pain, Palpitations, Orthopnea, Paroxysmal Noc. Dyspnea, Edema, Lt Headedness, Other Symptoms Gastrointestinal: Denies: Nausea, Vomiting, Abdominal Pain, Diarrhea, Constipation, Melena, Hematochezia, Other Symptoms Genitourinary: Denies: Dysuria, Frequency, Incontinence, Hematuria, Retention, Other Symptoms Hematologic: Denies: Bruising, Bleeding Excessively, Petecchia, Purpura, Enlarged Lymph Nodes, Other Hematologic Endocrine: Denies: Polydipsia, Polyphagia, Polyuria, Heat Intolerance, Cold Intolerance, Other Endocrine Sx Musculoskeletal: Denies: Neck Pain, Back Pain, Shoulder Pain, Arm Pain, Hand Pain, Leg Pain, Foot Pain, Joint Pain, Muscle Pain, Spasms, Other Symptoms Neurological: Denies: Weakness, Numbness, Incoordination, Change in speech, Confusion, Seizures, Other Symptoms Psych: Reports: Depression, Other Psych (suicidal); Denies: Mood Normal, Anxiety, Memory Issues, Thoughts of Self Harm, Anger, Thoughts of Harming Other Physical Examination General Exam: Positive: Alert, Cooperative Eye Exam: Positive: PERRLA, Conjunctiva & lids normal ENT Exam: Positive: Atraumatic Neck Exam: Positive: Supple Chest Exam: Positive: Clear to auscultation, Normal air movement Heart Exam: Positive: Rate Normal, Normal S1, Normal S2 Abdomen Exam: Positive: Normal bowel sounds Extremity Exam: Positive: Normal pulses Skin Exam: Positive: Nl turgor and temperature Neuro Exam: Positive: Cranial Nerves 3-12 NL Psych Exam: Positive: Mood NL, Oriented x 3 Vital Signs Vital Signs Date Time Temp Pulse Resp B/P (MAP) Pulse Ox O2 Delivery O2 Flow Rate FiO2 03/20/20 03:59 97.5 82 18 142/87 (105) 98 Room Air Laboratory Data Labs 24H Laboratory Tests 2 03/19/20 19:44: Nucleated Red Blood Cells % (auto) 0.0, Anion Gap 7L, Glomerular Filtration Rate > 60.0, Calcium Level 8.9, Total Bilirubin 0.3, Direct Bilirubin 0.1, Aspartate Amino Transf (AST/SGOT) 8, Alanine Aminotransferase (ALT/SGPT) 11L, Alkaline Phosphatase 74, Total Protein 6.9, Albumin 3.8, Albumin/Globulin Ratio 1.2, Thyroid Stimulating Hormone (TSH) 0.893, Human Chorionic Gonadotropin, Qual NEGATIVE, Salicylates Level 3.0L, Urine Opiates Screen NEGATIVE, Urine Methadone Screen NEGATIVE, Acetaminophen Level < 2.0L, Urine Barbiturates Screen NEGATIVE, Urine Phencyclidine Screen NEGATIVE, Urine Amphetamines Screen NEGATIVE, Urine Benzodiazepines Screen NEGATIVE, Urine Cocaine Metabolite Screen NEGATIVE, Urine Cannabinoids Screen POSITIVEH, Ethyl Alcohol Level < 0.003 CBC/BMP Laboratory Tests 03/19/20 19:44 Problems (1) Suicide risk Status: Acute Problem Text: 24 years old female with past medical history of depression, has been feeling very depressed with suicidal thoughts since last 2 months, but she did not act on them, but yesterday she had a querril with her mother and she told her that she will jump in the liver to kill herself and later she was pronounced at mother were by police and brought to the emergency room. Patient has been admitted to inpatient mental health unit Group and individual counseling as per psychiatry Pharmacological intervention as per psychiatry Will check patient's CBC, CMP and thyroid function Will follow patient,If there is any abnormal lab work. (2) Depression Status: Acute Problem Text: As per psychiatry intervention Plan / VTE VTE Prophylaxis Ordered?: No VTE Exclusion Mechanical Proph: Low Risk for VTE VTE Exclusion Pharmacological: At Low Risk for VTE KATHI BUENO MD Mar 20, 2020 13:14
[2020-03-20 16:30] VITALS: BP 134/69
[2020-03-21 06:43] VITALS: BP 124/64
--- NOTE | 2020-03-21 09:22 | MHIPNPDOC ---
[facility] Progress Note Progress Note DATE OF SERVICE: 03/21/20 HISTORY: . VITAL SIGNS: See below. NEW TEST RESULTS: . CURRENT MEDICATIONS: See below. MENTAL STATUS EXAMINATION: Patient is a -year old female, who is . Speech: Is . Language skills are . Thought processes including: . Thought content: . Abstract reasoning, and computation: . Description of asso ciations: . Description of abnormal or psychotic thoughts: . Judgment: . Insight: [very limited, good, fair. poor]. Orientation: . Recent and remote memory: . Attention span and concentration: . Language: . Fund of knowledge: . Mood: . Affect: . DIAGNOSES: 1. . 2. . 3. . ASSESSMENT: MANAGEMENT PLAN: . TIME SPENT: minutes. Vital Signs Vital Signs Date Time Temp Pulse Resp B/P (MAP) Pulse Ox O2 Delivery O2 Flow Rate FiO2 03/21/20 06:43 97.6 62 12 124/64 (84) 98 Room Air Current Medications Current Medications Medications (Trade) Dose Ordered Sig/Carina Route PRN Reason Start Time Stop Time Status Last Admin Dose Admin Acetaminophen (Tylenol Tab) 650 mg Q6HP PRN PO HEADACHE or DISCOMFORT 03/20/20 02:15 Al Hydrox/Mg Hydrox/Simethicone (Mylanta) 30 ml Q4HP PRN PO HEARTBURN/INDIGESTION 03/20/20 02:15 Home Med (Med Rec Complete!) ASDIRECTED XX 03/20/20 02:30 03/20/20 02:19 DC Magnesium Hydroxide (Milk Of Magnesia) 30 ml DAILYPRN PRN PO CONSTIPATION 03/20/20 02:15 Olanzapine (ZyPREXA ZYDIS) 5 mg Q4HP PRN PO anxiety/agitation 03/20/20 02:15 Trazodone HCl (Desyrel) 50 mg QHSP PRN PO INSOMNIA 03/20/20 02:15 Allergies Coded Allergies: No Known Allergies (Unverified , 09/24/18) ANSHUL MARQUEZ DO Mar 21, 2020 09:22
--- NOTE | 2020-03-21 09:51 | MHDSPDOC ---
[facility] Discharge Summary Discharge Summary DATE OF ADMISSION: Mar 20, 2020 at 02:03 DATE OF DISCHARGE: Mar 21, 2020 at 14:51 DISCHARGE DIAGNOSES: See Problem list below REASON FOR ADMISSION: 24-year-old woman admitted after making concerning statements CONSULTANTS INVOLVED:[ None (basic hospitalist screening)] TREATMENT AND PROGRESS ON THE UNIT : Medication changes: no medications Behavior on unit: observe, irritable at times but became less irritable after talking about her stressful situations Treatment attendance: attended at times Notable issues on presentation: concern about patient's statements, however 48 hour observation State on discharge: [stable] DISCHARGE ASSESSMENT: The patient a 24 year old woman, with likely adjustment reaction, presented to [facility], where they are observe for 48 hours, after which time they do not meet involuntary criteria as they have not been does training any suicidal or homicidal ideation and have been in behavioral control other than some minor irritability. Legal status considerations: The patient at the time of discharge did not meet criteria for involuntary admission/extension due to having a [normal] mental status exam, improved insight into the situation, They are engaged in the discharge process, as well as being friendly and amenable in behavioral control and havent been engaging in any observed concerning behavior or ideation recently. They decline voluntary extension/admission at this time and must be discharged in good johana, as Im unable to make a case for holding the patient against their will. They may have historical risk factors of admissions and other interactions with psychiatry however, those are not modifiable from a clinical perspective. The patient will need to be discharged in good johana. MENTAL STATUS EXAMINATION ON DISCHARGE: General: [Well dressed with good hygiene] Speech: [Spontaneous and fluid] Thought processes: [Linear and logical] Thought content: [Future orientated] Abstract reasoning, and computation: [Intact] Description of associations: [Intact] Description of abnormal or psychotic thoughts:[Denies any suicidal or homicidal ideation. Denies any auditory or visual hallucinations. Does not appear to be responding to internal stimuli. Does not appear to be endorsing any bizarre or paranoid ideation.] Judgment: improved Insight: improved Orientation: [Alert and orientated 3] Recent and remote memory: [Intact] Attention span and concentration: [Intact] Fund of knowledge: [Adequate] Mood: ["okay"] Affect: [Euthymic with a full range] PLAN/FOLLOWUP ARRANGEMENTS: Follow up appointments made (PCP and MH in 5 days of D/C date) and safety plan completed. Safety Planning aspects completed prior to discharge [RN reviewed crisis hotline information and other aspects to empower patient to access care in interim before next appointment.] The amount of time spent in the coordination of care for this patient was approximately 30 minutes. Vital Signs/I&Os Vital Signs Date Time Temp Pulse Resp B/P (MAP) Pulse Ox O2 Delivery O2 Flow Rate FiO2 03/21/20 06:43 97.6 62 12 124/64 (84) 98 Room Air Medications Scheduled [id number]/Iron Fum/Folic/Docusate ( 19 Tablet) 1 Tab Tab, 1 TAB PO DAILY, (Reported) Scheduled PRN Acetaminophen (Acetaminophen) 500 Mg Tablet, 1,000 MG PO Q6H PRN for PAIN, (Reported) Ibuprofen (Ibuprofen) 200 Mg Tablet, 600 MG PO QID PRN for PAIN, (Reported) Allergies Coded Allergies: No Known Allergies (Unverified , 09/24/18) Problems (1) Adjustment reaction, depressive, brief Status: Resolved Plan / VTE VTE Prophylaxis Ordered?: No ANSHUL MARQUEZ DO Mar 21, 2020 09:51
== END 2020-03-21 14:51 | disposition home or self-care (01) | DRG 754 ==
LOC: M ED 19:23 → M ED INP 03-20 02:03 → M PSY 03-20 03:08
PROVIDERS: ADMIT Psychiatry & Neurology Addiction Medicine; ATTEND Psychiatry & Neurology Addiction Medicine
DX: F43.21 Adjustment disorder with depressed mood (principal); Z79.899 Other long term (current) drug therapy; Z63.8 Other specified problems related to primary support group

== ENCOUNTER → 2020-03-26 | Outpatient (REF) | payer OTHER ==
[~2020-03-26] MED LIST changes: +BUPR150T3 PO; -BUPR150T4 PO; +FLAG500T PO; +IBUP-1720 PO; +MACR100C43 PO
[2020-03-26 14:16] LABS: BASO # 0.1 10^3/uL (0.0-0.2); BASO % 0.7 % (0.0-1.0); EOS # 0.1 10^3/uL (0.0-0.5); EOS % 1.6 % (0.0-3.0); HEMATOCRIT 43.4 % (36.0-47.0); HEMOGLOBIN 14.2 g/dl (12.0-15.5); LYMPH # 3.4 10^3/uL (1.5-5.0); LYMPH % 39.2 % (24.0-44.0); MEAN CORPUSCULAR HEMOGLOBIN 30.9 pg (27.0-33.0); MEAN CORPUSCULAR HGB CONC 32.7 g/dl (32.0-36.5); MEAN CORPUSCULAR VOLUME 94.6 fl (80.0-96.0); MONO # 0.6 10^3/uL (0.0-0.8); MONO % 6.6 % (0.0-5.0); NEUTROPHILS # 4.4 10^3/uL (1.5-8.5); NEUTROPHILS % 51.7 % (36.0-66.0); PLATELET COUNT, AUTOMATED 276 10^3/uL (150-450); RED BLOOD COUNT 4.59 10^6/uL (4.00-5.40); WHITE BLOOD COUNT 8.5 10^3/uL (4.0-10.0)
[2020-03-26 14:36] LABS: ALT/SGPT 13 U/L (12-78); BILIRUBIN,TOTAL 0.5 MG/DL (0.2-1.0); BLOOD UREA NITROGEN 9 MG/DL (7-18); CALCIUM LEVEL 9.3 MG/DL (8.5-10.1); CARBON DIOXIDE LEVEL 27 MEQ/L (21-32); CHLORIDE LEVEL 108 MEQ/L (98-107); CREATININE FOR GFR 0.76 MG/DL (0.55-1.30); GLOMERULAR FILTRATION RATE > 60.0 (>60); GLUCOSE, FASTING 84 MG/DL (70-100); POTASSIUM SERUM 4.8 MEQ/L (3.5-5.1); SODIUM LEVEL 137 MEQ/L (136-145); TOTAL PROTEIN 7.4 GM/DL (6.4-8.2)
[2020-03-26 14:44] LABS: FREE T4 1.01 NG/DL (0.76-1.46); THYROID STIMULATING HORMONE 0.252 uIU/ML (0.358-3.740)
== END ==
LOC: M SFHCPLAZ 11:37
PROVIDERS: ATTEND Nurse Practitioner Family
DX: N92.6 Irregular menstruation, unspecified (principal); Z86.39 Personal history of other endocrine, nutritional and metabolic disease; D72.829 Elevated white blood cell count, unspecified; Z82.69 Family history of other diseases of the musculoskeletal system and connective tissue

== ENCOUNTER 2020-04-08 10:15 | Emergency (ER) | payer OTHER ==
[~2020-04-08] VITALS: Ht 165.1 cm; Wt 80.5 kg
[~2020-04-08 10:15] MED LIST changes: -FLAG500T PO; -MACR100C43 PO
[2020-04-08 10:56] LABS: BASO # 0.1 10^3/uL (0.0-0.2); BASO % 0.7 % (0.0-1.0); EOS # 0.1 10^3/uL (0.0-0.5); EOS % 1.5 % (0.0-3.0); HEMATOCRIT 43.2 % (36.0-47.0); LYMPH % 36.4 % (24.0-44.0); MEAN CORPUSCULAR HEMOGLOBIN 30.4 pg (27.0-33.0); MEAN CORPUSCULAR HGB CONC 32.4 g/dl (32.0-36.5); MEAN CORPUSCULAR VOLUME 93.7 fl (80.0-96.0); MONO # 0.4 10^3/uL (0.0-0.8); MONO % 5.2 % (0.0-5.0); NEUTROPHILS # 4.6 10^3/uL (1.5-8.5); NEUTROPHILS % 55.8 % (36.0-66.0); PLATELET COUNT, AUTOMATED 295 10^3/uL (150-450); RED BLOOD COUNT 4.61 10^6/uL (4.00-5.40); WHITE BLOOD COUNT 8.3 10^3/uL (4.0-10.0)
[2020-04-08] MEDS: GASTROGRAFIN SOLUTION 30ML PO SCH ×2 (11:53→12:40)
[2020-04-08 12:00] LABS: ALBUMIN 3.9 GM/DL (3.2-5.2); BILIRUBIN,DIRECT 0.1 MG/DL (0.0-0.2); BILIRUBIN,TOTAL 0.8 MG/DL (0.2-1.0); C REACTIVE PROTEIN QUANTITATIV 0.36 MG/DL (0.00-0.30)
[2020-04-08 12:18] LABS: ERYTHROCYTE SEDIMENTATION RATE 2 mm/hr (0-20)
[2020-04-08] MEDS ORDERED: ISOVUE-370 76% 100ML VIAL As Ordered ONE (13:15)
[2020-04-08 14:00] LABS: CHLAMYDIA DNA AMPLIFICATION NEGATIVE (NEGATIVE); GC DNA AMPLIFICATION NEGATIVE (NEGATIVE)
[2020-04-08] MEDS ORDERED: KETOROLAC 30 MG/ML 1ML VIAL IV ONE (14:00)
[2020-04-08 14:39] VITALS: BP 109/63
[2020-04-08] MEDS ORDERED: FLAG500T PO (14:55)
[2020-04-08] MEDS ORDERED: MACR100C43 PO (14:55)
--- NOTE | 2020-04-08 17:43 | REP ---
CT ABDOMEN AND PELVIS WITH ORAL AND IV CONTRAST: TECHNIQUE: Axial contrast-enhanced images from the lung bases to the pubic symphysis using 100 mL Isovue-370 intravenous contrast material with multiplanar reformations. Visualized lung bases demonstrate no infiltrate. The liver, spleen, adrenals, pancreas, and kidneys are normal in appearance. There is no hydronephrosis. There is an extrarenal pelvis bilaterally. There is no abdominal aortic aneurysm. There is no adenopathy. There is no free air. There is no bowel obstruction. There is no evidence of bowel wall thickening. The terminal ileum is normal. The appendix is normal. There is a tiny amount of free fluid in the right lower quadrant. There is a dominant follicle of the right ovary, 1.5 cm in diameter. There is no other evidence of pelvic mass. Urinary bladder is mildly distended and grossly unremarkable. IMPRESSION: No bowel abnormality seen. No bowel thickening or inflammation. Appendix is normal. Dominant follicle right ovary 1.5 cm with very small amount of free fluid in the right lower quadrant. Electronically Signed by James Bullock MD 04/09/2020 04:48 P
--- NOTE | 2020-04-08 23:39 | REP ---
PELVIC ULTRASOUND: Real-time sonographic evaluation of pelvis performed utilizing transabdominal and endovaginal technique. Bladder measures 7.3 x 6.2 x 10.5 cm. Uterus measures 9.3 x 4.5 x 5.2 cm. Endometrial thickness is 6 mm with no endometrial fluid collection. Right ovary measures 3.5 x 2.4 x 3.0 cm and left ovary 2.2 x 1.5 x 1.9 cm. A dominant follicle in the right ovary measures 1.7 cm maximally. There is no evidence of ovarian torsion bilaterally with duplex Doppler evaluation. There is trace free fluid. IMPRESSION: Dominant follicle right ovary 1.7 cm with trace free fluid. No evidence of ovarian torsion. Electronically Signed by James Bullock MD 04/09/2020 04:49 P
== END 2020-04-08 15:09 | disposition home or self-care (01) ==
LOC: M ED 10:15
DX: N83.201 Unspecified ovarian cyst, right side (principal); N39.0 Urinary tract infection, site not specified; N76.0 Acute vaginitis
CPT/HCPCS: 74177; 76830; 76856; 80047; 80076; 81001; 83690; 84702; 85025; 85652; 86140; 87088; 87186; 87210; 87661; 93976; 96374; 99284; J1885; Q9963; Q9967

== ENCOUNTER → 2020-07-30 | Outpatient (CLI) | payer OTHER ==
[~2020-07-30] MED LIST changes: +FLAG500T PO; +MACR100C43 PO
[2020-07-30 20:56] LABS: FREE T4 0.97 NG/DL (0.76-1.46); THYROID STIMULATING HORMONE 0.479 uIU/ML (0.358-3.740)
== END ==
LOC: M PLALAB 11:10
PROVIDERS: ATTEND Nurse Practitioner Family
DX: E05.90 Thyrotoxicosis, unspecified without thyrotoxic crisis or storm (principal)

== ENCOUNTER 2021-07-19 11:21 | Emergency (ER) | payer OTHER ==
[~2021-07-19] VITALS: Ht 167.6 cm; Wt 77.4 kg
[2021-07-19 11:21] VITALS: BP 122/58
[~2021-07-19 11:21] MED LIST changes: +BUPR150T12 PO; -BUPR150T3 PO; -KLOR20TA42 FT; +POTA-141 FT
--- OUTSIDE RECORDS SUMMARY | 2021-07-19 11:26 | CCD ---
Author Author [facility] Organization [facility] Address Unknown Phone Unavailable Care Team Providers Care Labor Mediator Name Role Phone Maring, Deven PA Unavailable Unavailable Maring, Deven PA Unavailable Unavailable Maring, Deven PA Unavailable Unavailable Maring, Deven PA Unavailable Unavailable Maring, Deven PA Unavailable Unavailable Maring, Deven PA Unavailable Unavailable Maring, Deven PA Unavailable Unavailable Maring, Deven PA Unavailable Unavailable Maring, Deven PA Unavailable Unavailable Maring, Deven PA Unavailable Unavailable Maring, Deven PA Unavailable Unavailable Maring, Deven PA Unavailable Unavailable Maring, Deven PA Unavailable Unavailable Maring, Deven PA Unavailable Unavailable Maring, Deven PA Unavailable Unavailable Maring, Deven PA Unavailable Unavailable Sharlene ARROYO Unavailable Unavailable Re-disclosure Warning The records that you are about to access may contain information from federally-assisted alcohol or drug abuse programs. If such information is present, then the following federally mandated warning applies: This information has been disclosed to you from records protected by federal confidentiality rules (42 CFR part 2). The federal rules prohibit you from making any further disclosure of this information unless further disclosure is expressly permitted by the written consent of the person to whom it pertains or as otherwise permitted by 42 CFR part 2. A general authorization for the release of medical or other information is NOT sufficient for this purpose. The Federal rules restrict any use of the information to criminally investigate or prosecute any alcohol or drug abuse patient.The records that you are about to access may contain highly sensitive health information, the redisclosure of which is protected by Article 27-F of the [facility] Public Health law. If you continue you may have access to information: Regarding HIV / AIDS; Provided by facilities licensed or operated by the [facility] Office of Mental Health; or Provided by the [facility] Office for People With Developmental Disabilities. If such information is present, then the following [facility] mandated warning applies: This information has been disclosed to you from confidential records which are protected by state law. State law prohibits you from making any further disclosure of this information without the specific written consent of the person to whom it pertains, or as otherwise permitted by law. Any unauthorized further disclosure in violation of state law may result in a fine or skilled nursing sentence or both. A general authorization for the release of medical or other information is NOT sufficient authorization for further disc losure. Allergies and Adverse Reactions Type Description Substance Reaction Status Data Source(s ) Propensity to adverse reactions NO KNOWN ALLERGIES NO KNOWN ALLERGIES [facility] Family History Family Member Name Family Member Gender Family Member Status Date o f Status Description Data Source(s) Unknown Unknown Problem MEDENT ([facility]) Unknown Male Problem MEDENT ([facility]) as of 02/10/2010 Encounters Encounter Providers Location Date Indications Data Source(s ) Outpatient Attender: Deven SOUZA 05/17/20 03:50:58 PM EDT - 05/17/2021 04:22:56 PM EDT [facility] ([facility] ) [place] [address] [address] 10/31/2020 12:00:00 AM EST eCW1 ([facility]) [place] [address] [address] 09/09/2020 12:00:00 AM EST eCW1 ([facility]) [place] [address] [address] 08/15/2020 12:00:00 AM EST eCW1 ([facility]) [place] [address] [address] 07/31/2020 12:00:00 AM EST eCW1 ([facility]) [place] [address] [address] 07/30/2020 12:00:00 AM EST eCW1 ([facility]) [place] [address] [place] [address] 07/28/2020 12:00:00 AM EST eCW1 ([facility]) [place] [address] [place] [address] 07/18/2020 12:00:00 AM EDT eCW1 ([facility]) Outpatient Attender: HODAN ARROYO [id number] 04/17/2020 02:27:06 PM [facility] Outpatient Attender: HODAN ARROYO [id number] 04/17/2020 01:59:08 PM [facility] Outpatient Attender: HODAN [id number] 04/11/2020 12:00:00 AM [facility] Outpatient Attender: HODAN [id number] 03/28/2020 12:00:00 AM [facility] Immunizations Vaccine Date Status Description Data Source(s) influenza, recombinant, quadrIvalent,injectable, prese rvative free 07/30/2020 11:55:00 AM EST completed eCW1 (Pending sale to [facility]) influenza, recombinant, quadrIvalent,injectable, prese rvative free 07/30/2020 11:55:00 AM EST completed eCW1 (Pending sale to [facility]) influenza, recombinant, quadrIvalent,injectable, prese rvative free 07/30/2020 11:55:00 AM EST completed eCW1 (Pending sale to [facility]) influenza, recombinant, quadrIvalent,injectable, prese rvative free 07/30/2020 11:55:00 AM EST completed eCW1 (Pending sale to [facility]) influenza, recombinant, quadrIvalent,injectable, prese rvative free 07/30/2020 11:55:00 AM EST completed eCW1 (Pending sale to [facility]) Medications Medication Brand Name Start Date Product Form Dose Route Admi nistrative Instructions Pharmacy Instructions Status Indications Reaction Description Data Source(s) 800 mg 12/25/2020 12:00:00 AM EDT tablet 10 TAKE ONE TABLET BY MOUTH EVERY 8 HOURS NEEDED TAKE ONE TABLET BY MOUTH EVERY 8 HOURS NEEDED SOLD: 12/26/2020 [facility] 300-30 mg 12/25/2020 12:00:00 AM EDT tablet 10 TAKE ONE TO TWO TABLETS BY MOUTH EVERY 4 HOURS NEEDED FOR PAIN MAXIMUM DAILY DOSE = 8 TABLETS TAKE ONE TO TWO TABLETS BY MOUTH EVERY 4 HOURS NEEDED FOR PAIN MAXIMUM DAILY DOSE = 8 TABLETS SOLD: 12/26/2020 [facility] 0.12-0.015 mg/24 hr 12/25/2020 12:00:00 AM EDT ring 3 INSERT 1 RING VAGINALLY LEAVE IN FOR 3 WEEKS THEN 1 WEEK OUT DIRECTED INSERT 1 RING VAGINALLY LEAVE IN FOR 3 WEEKS THEN 1 WEEK OUT DIRECTED SOLD: 12/26/2020 [facility] 4 mg 12/25/2020 12:00:00 AM EDT tablet 10 TAKE ONE TABLET BY MOUTH EVERY 4 HOURS NEEDED TAKE ONE TABLET BY MOUTH EVERY 4 HOURS NEEDED SOLD: 12/26/2020 [facility] 25 mg 09/09/2020 12:00:00 AM EST tablet 30 TAKE ONE TABLET BY MOUTH EVERY DAY TAKE ONE TABLET BY MOUTH EVERY DAY SOLD: 09/11/2020 [facility] Sertraline 25 MG Oral Tablet Sertraline HCl 25 MG Sertraline HCl 25 MG 09/09/2020 12:00:00 AM EST 1.0 {tablet} active Sertraline HCl 25 MG eCW1 ([facility]) Sertraline 25 MG Oral Tablet Sertraline HCl 25 MG Sertraline HCl 25 MG 09/09/2020 12:00:00 AM EST 1.0 {tablet} active Sertraline HCl 25 MG eCW1 ([facility]) Clindamycin 10 MG/ML Topical Solution Clindamycin Phos phate 1 % Clindamycin Phosphate 1 % 08/01/2020 12:00:00 AM EST acti ve Clindamycin Phosphate 1 % eCW1 ([facility]) Clindamycin 10 MG/ML Topical Solution Clindamycin Phos phate 1 % Clindamycin Phosphate 1 % 08/01/2020 12:00:00 AM EST acti ve Clindamycin Phosphate 1 % eCW1 ([facility]) Clindamycin 10 MG/ML Topical Solution Clindamycin Phos phate 1 % Clindamycin Phosphate 1 % 08/01/2020 12:00:00 AM EST acti ve Clindamycin Phosphate 1 % eCW1 ([facility]) Benzoyl Peroxide 0.05 MG/MG Topical Gel Benzoyl Peroxi de 5 % Benzoyl Peroxide 5 % 08/01/2020 12:00:00 AM EST active Benzoyl Peroxide 5 % eCW1 ([facility]) Benzoyl Peroxide 0.05 MG/MG Topical Gel Benzoyl Peroxi de 5 % Benzoyl Peroxide 5 % 08/01/2020 12:00:00 AM EST active Benzoyl Peroxide 5 % eCW1 ([facility]) 5 % 08/01/2020 12:00:00 AM EST gel 42 APPLY TO FACE DAILY APPLY TO FACE DAILY SOLD: 08/08/2020 [facility] Clindamycin 10 MG/ML Topical Solution Clindamycin Phos phate 1 % Clindamycin Phosphate 1 % 08/01/2020 12:00:00 AM EST acti ve Clindamycin Phosphate 1 % eCW1 ([facility]) Benzoyl Peroxide 0.05 MG/MG Topical Gel Benzoyl Peroxi de 5 % Benzoyl Peroxide 5 % 08/01/2020 12:00:00 AM EST active Benzoyl Peroxide 5 % eCW1 ([facility]) Benzoyl Peroxide 0.05 MG/MG Topical Gel Benzoyl Peroxi de 5 % Benzoyl Peroxide 5 % 08/01/2020 12:00:00 AM EST active Benzoyl Peroxide 5 % eCW1 ([facility]) Clindamycin 10 MG/ML Topical Solution Clindamycin Phos phate 1 % Clindamycin Phosphate 1 % 08/01/2020 12:00:00 AM EST acti ve Clindamycin Phosphate 1 % eCW1 ([facility]) 1 % 08/01/2020 12:00:00 AM EST solution 60 APPL Y TO FACE TWO TIMES A DAY APPLY TO FACE TWO TIMES A DAY SOLD: 08/08/2020 [facility] Benzoyl Peroxide 0.05 MG/MG Topical Gel Benzoyl Peroxi de 5 % Benzoyl Peroxide 5 % 08/01/2020 12:00:00 AM EST active Benzoyl Peroxide 5 % eCW1 ([facility]) Escitalopram 10 MG Oral Tablet Escitalopram Oxalate 10 MG Escitalopram Oxalate 10 MG 07/30/2020 12:00:00 AM EST 1.0 {tablet} activ e Escitalopram Oxalate 10 MG eCW1 ([facility]) Escitalopram 10 MG Oral Tablet Escitalopram Oxalate 10 MG Escitalopram Oxalate 10 MG 07/30/2020 12:00:00 AM EST 1.0 {tablet} activ e Escitalopram Oxalate 10 MG eCW1 ([facility]) Escitalopram 10 MG Oral Tablet Escitalopram Oxalate 10 MG Escitalopram Oxalate 10 MG 07/30/2020 12:00:00 AM EST 1.0 {tablet} activ e Escitalopram Oxalate 10 MG eCW1 ([facility]) Insurance Providers Payer name Policy type / Coverage type Policy ID Covered alliance party ID Covered alliance party's relationship to mendez Policy Mendez Plan Information KENY [id number] [address] [facility] [id number] Self [id number] 200 [employer] [id number] [facility] [id number] MEDICAID [id number] [employer] [facility] [place] Medicaid [id number] [facility] [id number] [employer] [place] Medicaid [id number] [facility] [id number] ANSI-Commercial [id number] ANSI-Commercial [id number] ANSI-Commercial [id number] ANSI-Commercial [id number] ANSI-Commercial [id number] ANSI-Commercial [id number] ANSI-Commercial [id number] ANSI-Commercial [id number] ANSI-Commercial [id number] [facility] Part B [id number] Self [id number] [employer]/[facility] Commercial [id number] Self [id number] ANSI-Commercial [id number] ANSI-Commercial [id number] ANSI-Commercial [id number] Medicaid [place] Medigap Part B [id number] Self [id number] [employer] [place] Medicaid [id number] Self [id number] Medicaid [place] Med[place] Part [place] [id number] Self [id number] [employer] [place] Medicaid [id number] Self [id number] [employer] [id number] MO2 [id number] [employer] [id number] MO2 [id number] SELF PAY UNAVAILABLE SP UNAVAILA BLE HMO BLUE [id number] SP [id number] SELF PAY [id number] MO2 [id number] KENY [id number] SP [id number] [employer] P [id number] S VYB [id number] [place] [id number] S [id number] EMEDNY [id number] SP [id number] Problems, Conditions, and Diagnoses Code Display Name Description Problem Type Effective Dates Data Source(s) F41.1 35793223 Generalized anxiety disorder Problem 020 12:00:00 AM EST eCW1 ([facility]) L70.0 [id number] Acne vulgaris Problem 07/30/2020 12:00:00 AM EST eCW1 ([facility]) Surgeries/Procedures Procedure Description Date Indications Data Source(s) Immunization: Flublok Quadrivalent (18 years & older) 0.5mL IM (Influenza) 07/30/2020 12:00:00 AM EST eCW1 ([facility]) Results ID Date Data Source 164 08/14/2020 12:00:00 AM EST [facility] Name Value Range Interpretation Code Description Data Gwen rce(s) Supporting Document(s) SARS-CoV2 Rapid Antigen [facility] This lab was ordered by [facility] and reported by [facility]. ID Date Data Source FREE T4 & TSH PANEL 07/31/2020 10:40:19 AM EST eCW1 ([facility]) Name Value Range Interpretation Code Description Data Gwen rce(s) Supporting Document(s) 0.479 THYROID STIMULATING HORMONE eC W1 ([facility]) 0.97 FREE T4 eCW1 (Pending sale to [facility]) ID Date Data Source [id number] 06/12/2020 02:10:[address] [facility] Name Value Range Interpretation Code Description Data Gwen rce(s) Supporting Document(s) Progress Note [facility] AAMRIx7dBlBGSlTp07/MYNxaRDTjv7LjCFyqCYu7CAgcFAWzB0ElION0lK1jKCF0HIaMWzNtWrFsHDJ5 lbm [file] Rg0K ID Date Data Source [id number] 06/12/2020 02:07:30 PM EDT [facility] Name Value Range Interpretation Code Description Data Gwen rce(s) Supporting Document(s) Progress Note [facility] GUNQSn0gCpKJIgCq99/TBEyhDKRau9XeRCzeFSz2SZncBQVuY8BzGPC2fA2cVLO0RLjNLoEfWfSiFZP1 lbm [file] ICAgICAgICAgICAgICAgICAgICAgICAgICAgICAgICAgICAgICAgICAgICAgICAgICAgICAgICAgICAg ICAgICAgICAgICAgICAgICAgICAgICAgICAgICANCi AgICAgICAgICAgICAgICAgICAgICAgICAgICAgICAgICAgICAgICAgICAgICAgICAgICAgICAgICAgIC AgICAgICAgICAgICAgICAgICAgICAgICAgICAgICAgICAgICAgICANCiAgICAgICAgICAgICAgICAgIC AgICAgICAgICAgICAgICAgICAgICAgICAgICAgICAg ICAgICAgICAgICAgICAgICAgICAgICAgICAgICAgICAgICAgICAgICAgICAgICAgICANCiAgICAgICAg ICAgICAgICAgICAgICAgICAgICAgICAgICAgICAgICAgICAgICAgICAgICAgICAgICAgICAgICAgICAg ICAgICAgICAgICAgICAgICAgICAgICAgICAgICAgIC ANCiAgICAgICAgICAgICAgICAgICAgICAgICAgICAgICAgICAgICAgICAgICAgICAgICAgICAgICAgIC AgICAgICAgICAgICAgICAgICAgICAgICAgICAgICAgICAgICAgICAgICANCiAgICAgICAgICAgICAgIC AgICAgICAgICAgICAgICAgICAgICAgICAgICAgICAg ICAgICAgICAgICAgICAgICAgICAgICAgICAgICAgICAgICAgICAgICAgICAgICAgICAgICANCiAgICAg ICAgICAgICAgICAgICAgICAgICAgICAgICAgICAgICAgICAgICAgICAgICAgICAgICAgICAgICAgICAg ICAgICAgICAgICAgICAgICAgICAgICAgICAgICAgIC AgICANCiAgICAgICAgICAgICAgICAgICAgICAgICAgICAgICAgICAgICAgICAgICAgICAgICAgICAgIC AgICAgICAgICAgICAgICAgICAgICAgICAgICAgICAgICAgICAgICAgICAgICANCiAgICAgICAgICAgIC AgICAgICAgICAgICAgICAgICAgICAgICAgICAgICAg ICAgICAgICAgICAgICAgICAgICAgICAgICAgICAgICAgICAgICAgICAgICAgICAgICAgICAgICANCiAg ICAgICAgICAgICAgICAgICAgICAgICAgICAgICAgICAgICAgICAgICAgICAgICAgICAgICAgICAgICAg ICAgICAgICAgICAgICAgICAgICAgICAgICAgICAgIC AgICAgICANCjw/fQMgV6ozsYKjzdN1N6knYs0RZf7DBL3ov1RbNUGxYHvrhyReCikJJyOeFYMzCklRTf j8LDgeQB0XhOXvB3KgH5IgUJadHE3QVBOwSAGqnVQrNOZpGIUhBhH5OOLnWEuoJI9EwCOyZBbjFHPhAL NwOX4LUHOmY662brZuTR8RRb4ECmNcQT5dzz3LMWQe YXDaJmyRLtu3BUnlNJ6JlBTkhLExFTRoYGHIDnUoY5saf1XvUQFrDMYGYYvzKJ7Xp5HewQWhPRa+Pg0K TQ7xy2SlJFecJZNfPU0xlp5LGOzKQbWcT9NedGgpXDYme2yhMDJcKV6dbDNiWGE5OFsdhKeoOXGQMVXe skrsFIVSQHlRFJD4SGnkVj3vZRHqLJIsPvZ8ELATRN 5HHYGdLFMglZMeRSEaUOHRCB6QEVipASO5FDZhfeBccWSeRMfpLV2NOHAapxBePUKiTVEAESe+Pg0KZW 7xp9LdOBsbBrEiMM9edo3UGToAJeWjJ4G3rNQrF3C0MEfoYd0EPLWhDNNpMKLmJAXCNZuvDN2KDE9ibt J8QV1TjPSeVMJmBVBfpPKdSGw0W40kjGZrNZnhYU2Y ICA+Eliza+Vj0AIXJhXAHcDYUdRiPoXAHMBnIdA3YgJ0VBc3GvM2YrDI45oUduunLbGWreQJ2IMB4sQDYa YIIDTF3TbQUtaA7lfwIlDXQcVBKXJiZhM74oeFAmADJuAXYeYRXbWs2FRDTpU7ZyxtRfkLqjkxMsMVZg LYDPVU5DQUvupcGrpYNfpOenBQ12eAeeMP8YTz2EDy RbVQ8goo1GmWGlAv0EATKcLb6DAADzPVSqQNIxFHX6RVJkZxJvTJuvTYPaLBXiYBF1YCLbUEGzMP9PDh JdFBZfIWRnRetcGEGmPBXada8LKXJnSGExXYt4QMWxCNJqVXDgEIbvZZTqHXCbZLM6PPUbOWVuTV8RZl MfYMEwUEVaNxwjZCZmHXFjyl9MXPEgLSIcOSIpGhNx OOXrWCJjUIqbEEFeRUWnFVmrNQXiJJCzET1ADbEnNWSiWFN3MDnwMMIpLKJxyn7HNRZjOOQrJdm2DBDf TXJwGIBcSKfuDOGkPCQnPRM7GPFmQQEgMP2CBbDsRODkVRWbYkvnUEKjZDQdki7BQGWiCQMpHUFkLLYc AHDfFWEsYDzpEGZpPSP2XlF8LCBtOCWuYK8WYlAqDO SvFUZbEUcnGZUgFULrrp3UKTEuMDLqSeBoRCOzTDDjDOMkUPkwSAQqNQI9Iyw2WWHbPOOrJJ1PWxCbRX usCSMQZka9AVwrL0h2UKNnLx7CD9Ush9EtEZLqSOGFUFgyDI0mmzMeCKRoNq0OI1tZCxo8EEX1IsZkUL Z9Pae8EyUhY0RpEARkKkUnMYTmJkKwEX5jMYyvHPor YHOnVhr9PGviW6Y9TJOyOvAnXUA7REHvRmF6KvPnPY3QYu5MZuL1VJW6sZKxKm1PYiWpIs0CKGKQR5SG Cg== ID Date Data Source [id number] 06/04/2020 12:15:[address] [facility] Name Value Range Interpretation Code Description Data Gwen rce(s) Supporting Document(s) Progress Note [facility] ODXODq5mCrZILsBw96/DXMedFHPci7UjNIgnPDv3UKuoICQqD8UqYYK5rZ9wZPO7DMiCAzJaCeFpAKT7 lbm MqPaiAPeZpQZWzZpfMLlDnKVueDblcjLSpDK9TvHF5JKUtE85pKVVjPIClZ1OqWVApKVn+Bf4QPKWnkV CrVK3JNohR4Uopa2a9TD5rrE0NKNRDVxqJR0kQ50s0u3BJJsa3JAYyaGvGUNkNBmnk3m3/AfYylkq3nt 5HNy89lH4ujh/q3NF26XkS/vtDDLJESinq/1baXz9C 1VJ8/WIQGKH2F7k0pKoIB5S7Lgcv3X+N+qpUK0Yx+SzHe50XXm90KOlzgWHwWuLbKn9+Ayde/M5I0f3fP [file] ICAgICAgICAgICAgICAgICAgICAgICAgICAgICAgICAgICAgICAgICAgICAgICAgICAgICAgICAgICAg ICAgICAgICAgICAgICAgICAgICAgICAgICAgICAgIC TaNDMeDW2CTOAkFRTxWPObYZZoFCTfYCSiWDAfWIXsFNGiOGYjWVHeQNUkNHFbMSKuWRYrNWLyISCmSR YjUESdLSRiKSSxJBJhSREvLBZzUTZkEEQeAUTbNPNlHGWnVSWxRFFcAXYfYYCwXB0LNGXnWECmFYJdRG AgICAgICAgICAgICAgICAgICAgICAgICAgICAgICAg GHPfOVQbMLKcUHJmNJAoUJJuNSHiXQNyQNYfHHViPRJeXYAjHYLyNWMlDNZbOFFxDICdDKGyRQCcZJ2S ICAgICAgICAgICAgICAgICAgICAgICAgICAgICAgICAgICAgICAgICAgICAgICAgICAgICAgICAgICAg ICAgICAgICAgICAgICAgICAgICAgICAgICAgICAgIC ImNSDwODOqLI2ULPArSGUvNGKfIACnHMNjDIVtCZFwWIIsKFJdZNTsPDCrSUIeWGAdYSWyLJLnGPMhST FeGPQiESUnAZAsTZJmIBGqJBLtTEJyUVWsJUMgBJIwTPAlPSZaWRDkXTPhCNRmRXWvTK8MVXGrRZSiHX AgICAgICAgICAgICAgICAgICAgICAgICAgICAgICAg ICAgICAgICAgICAgICAgICAgICAgICAgICAgICAgICAgICAgICAgICAgICAgICAgICAgICAgICAgICAg PZ8XOIXmTHDcZNDaOTSmYAMzWNKsVMSiYVLeKELbZUOqYUBwYKUdFJPgPFMgEHTeVBVvPLBkIRFlVRYh ICAgICAgICAgICAgICAgICAgICAgICAgICAgICAgIC CjBVMwPKAkAJUjZQ7FULNsVQOiCILsUIYcNXRvHUPvJRBkYWVhNJWlRKPjFKHsZCRzWPZtCYCaHDVfOU AqGHOxZSQgKKNyMYRvCNYtDFRyZWGsBHRgMGVgXWPjURXuDDAxCDMsAWThVBRkVKLzVBTrPR1SKVZyLJ AgICAgICAgICAgICAgICAgICAgICAgICAgICAgICAg ICAgICAgICAgICAgICAgICAgICAgICAgICAgICAgICAgICAgICAgICAgICAgICAgICAgICAgICAgICAg APJrAX1UCMOgYPExYIWoQIBbZIIxGQFgOCTmATDeDFKlELIoIUOiARIeRCBqWAJeVPSbRMCpLBOvRRXk ICAgICAgICAgICAgICAgICAgICAgICAgICAgICAgIC JfRWNyRUFrYVAhUOKqFA7ULN76fAXzm3W2PESxZO9jlzo/Gr1XCIsqecPhsSQvHC1OZcUpIE5umj5TFa AyXI8gkb5CRYkQMlEqY6W4sTRiDOIoQXNDEfZtG99nTXfkUp82QQtdBHXmEcKkMCu4Jf8VDqHoP4weKX UgMxI1LYYjInRbBTtoWR1Mc4TflNOzAIk+Dg7KHW6u b0QsCWniQIGxZV3syu6ULRzFUwVgQ5DuwnD6PVZ5LTDeUb2YWOXkUQAqsLXgLBMsGORMEiLdA0BjiU61 IDENCj4+QMgsadBlJprBNfK8CWHqk9WuCXa8YI9WBYZeXZr9fDQwHANtG0Wbg8EfQw84YSIjWdkdDspm lVPOHPspoDu4oNMtJPoGXKNsZMMvMz9aLv3sNMBbPI F9FfIlGCUWSC3PVILdQWSfdSEkLPCvQIBHXC6KESkxYIP9LOYepqHubQKrVTkzRU7FSTJbeoSjPHFyZG BSDQo+Cu3KED7ik0XwJMopGmZxJV5lth4RZQqCBiGnF5J0tQJoB7A4VFfiDq5TCIGqXGSoNJMrMKKUSW bfRN3ZMP2dfsP5WS7YhNTiRRUbRMMwkVTeWBd6Q63b zTPpBXxrGB9VFJM+Eliza+Xn0GJUGgJSBcARFxJkJuVLPMDlCqU0WoV6ZHc9EwJ3CzZJ81eIsgymTnULdc YW1LMF6bAAXlLWLYXF3JnIZvcS9vjlMuMITlHMRAYpMdT66rzFXqEQGiCMWfFBYmMg1JLMXaL4EtmtAy wFmiuuRoVWBmSDXJSG0QFNuhebCzqXLlaWcbWQ09oS bzTU6PJx4XLwHjBG4zrc1MvYSwAx8KHIWrEr6WFCMdZTIbSIGpOHQ6SJPvHpQsZHttHPFvXFJhNFR8HV QaFBJxQS0MKyVwIPEjWVZgNSebZFHuUWKyfi3MUUPwKWJgPJo7YoHaJCEnQCHaXNwoIRChCHTbZPI1XS VeDKMdOI1NOkOlUSYrBGUqMbukSCWwPOUcji8WDIZs RYDuCBL8RRBgFIYrVJNoQSzdYNIbHTOfDBUtJEEyGKUxIA0MZrCrKHTwCFF2BAXnZMIvIXDdua6YYFCb GFBfXod1IeYyONWwJDAtJNhlZACrCTOdYLR4HMFxGIXzMF9CToJzKIJeMGKyJtIoEYZyIBMffz1OUOIc UWClVTMwLpOcDJFzYHYlGTbbAKEtYRI6RtC1UNMgQG CjSW2DLtHpJGDlAWQbInGgPWQyZTGfod3RIBRnUYByCfBuBcNcBFVwZJHjAKqwIJGmQCR4Jag9QYJkEG AtSI3FUcEyFNhjTSKQWxm5HPbjG1b5IPLmPy1CC8Ktw1PdBWNsGJMOWBtaJF8fxbXaIRKzPl3DY2lHUs dsP5PbRUwyQLFmMSK7IYUkDLOpHHY5VWYvZFK1JKp0 To4nUPCbBZDzT3T0WIQ5PdJ2HFCxHCB8XPYtDXG1QaD6HEBzCfHdGD0CNt1IRqT5HTW3rIPeRg0WXxZn RR2HSANXJ5BBLx== ID Date Data Source [id number] 06/04/2020 12:05:[address] [facility] Name Value Range Interpretation Code Description Data Gwen rce(s) Supporting Document(s) Progress Note [facility] QGKOKj3eRcIIWaEk46/IUPoiUXGvv9RwYOhhHIl5RAdzPTUoM5WkYXQ2jP5vOSO5GTwOMyTsKcHbFAX1 lbm SsCykGMnOeEVVtKakMAoDlEBwzJgtpzMBpNT1OhLP2RVKlY28tEPNdGEVlV5GtIPSvDRF+Vq4ZEEXakK KaEU2SAbdT1Crtw6a7GY1fsO7JXHTFUnhZC24QlWmOifKL7lAivyY19IR54HEbijglp8/4FIIjfa6spa Vh+rQEiHVwpXsOLy+pQ0cI//WQSWDnvEB2z9tVqTUv aim+/tjgwdX0y1iqxbbHK4ssIw9sqEcX/rOWR9PyeM4AgyqOHou8UbEIfVWxUiMwMo0+Ayde/I7A7awzB [file] ICAgICAgICAgICAgICAgICAgICAgICAgICAgICAgICAgICAgICAgICAgICAgICAgICAgICAgICAgICAg ICAgICAgICAgICAgICAgICAgICAgICAgICAgICAgIC AgICAgICANCiAgICAgICAgICAgICAgICAgICAgICAgICAgICAgICAgICAgICAgICAgICAgICAgICAgIC AgICAgICAgICAgICAgICAgICAgICAgICAgICAgICAgICAgICAgICAgICAgICAgICANCiAgICAgICAgIC AgICAgICAgICAgICAgICAgICAgICAgICAgICAgICAg ICAgICAgICAgICAgICAgICAgICAgICAgICAgICAgICAgICAgICAgICAgICAgICAgICAgICAgICAgICAN CiAgICAgICAgICAgICAgICAgICAgICAgICAgICAgICAgICAgICAgICAgICAgICAgICAgICAgICAgICAg ICAgICAgICAgICAgICAgICAgICAgICAgICAgICAgIC AgICAgICAgICANCiAgICAgICAgICAgICAgICAgICAgICAgICAgICAgICAgICAgICAgICAgICAgICAgIC AgICAgICAgICAgICAgICAgICAgICAgICAgICAgICAgICAgICAgICAgICAgICAgICAgICANCiAgICAgIC AgICAgICAgICAgICAgICAgICAgICAgICAgICAgICAg ICAgICAgICAgICAgICAgICAgICAgICAgICAgICAgICAgICAgICAgICAgICAgICAgICAgICAgICAgICAg ICANCiAgICAgICAgICAgICAgICAgICAgICAgICAgICAgICAgICAgICAgICAgICAgICAgICAgICAgICAg ICAgICAgICAgICAgICAgICAgICAgICAgICAgICAgIC AgICAgICAgICAgICANCiAgICAgICAgICAgICAgICAgICAgICAgICAgICAgICAgICAgICAgICAgICAgIC AgICAgICAgICAgICAgICAgICAgICAgICAgICAgICAgICAgICAgICAgICAgICAgICAgICAgICANCiAgIC AgICAgICAgICAgICAgICAgICAgICAgICAgICAgICAg ICAgICAgICAgICAgICAgICAgICAgICAgICAgICAgICAgICAgICAgICAgICAgICAgICAgICAgICAgICAg ICAgICANCiAgICAgICAgICAgICAgICAgICAgICAgICAgICAgICAgICAgICAgICAgICAgICAgICAgICAg ICAgICAgICAgICAgICAgICAgICAgICAgICAgICAgIC AgICAgICAgICAgICAgICANCjw/sCGuW7ctkHBvpeU5C9ogUh9ISo9FUR2ya0OoLCTvIUvfxhUnZjfYPx WkKKVnNvaAOvx6SXzcIO3EhFAfF6EgL6HiRDoyIF4YMLZgTUDjsMKpOKKmMIGbZqP3UKOpWCoxMD7CmA NtLAgwKWSyVOTaLX1AOBIiD169eoQcCD0RFx0LRvHo AA6hie1OUCDyINLoDchYAjy3NGgdGK3RiHModORcORSsBKPTYjLnS1lnq5UoYRPtGRUEVGknXW3Xh6Bt dCAxDQo+Zz5JYQ4st3MmYPloKPGuRK8mlf0CBYlGHxAlI7KvdBmuKPCql9joAWNmGG7dbFGbPMV0PVlo jVjzZPCVRTCenmmsPCRNRWaYAKJ3EDpcBd8uRLCoNO VvHiTiMOMIQS6BHPBhOGQazHIdGSUsNMIRDM8DKDnjMOI7MGHbaqNwcRXjUNmdIT9LSVPrieKbGPXaVW BSDQo+Le6BPL2wj0RqDDerErXxFR2bez8OQXiGVnNfQ0O3eURiS2F9KJjxVw7GTCYgPNHkHZTdKYTILL jyCX1MQR2kboQ1MK9WdFLkTWObHLSuhKPeLKp7A46e oSMrZJcfBD4UDWG+Eliza+Ph5XODZnVKLaECBlSgHeANUXHvCvC4IxD2LPk6XsF4QkWJ39kVtobgWuPTpy XN1JSA4vFTCkQEOFFL0SjDWriT0fowAtTKVmYCQJAgIfX86qxCXsDHAhUCKyALQaEz3RLIKeJ4LnclHf dLcnldLrPXSxVMSKWA6RFQtaujPswNHuzJoxRE03gD haDE5BMp7TWcPaTA3ckq3QlBCyJp2HABOtCn0DXRKjYUJgGQIyZXX9YYLnIpKcUNzqWPTbBQMfCFR7ON HcOTRqGT9TJcNqQZQnKZKhLFloVTBuFQNiir5GDHRgCZWgKGt5BHVfPBNfGUCiRXjvTMZhVYViNTS4JA QzQZZhLN8UTwSrWTWxYOEoPomdQHExLLZtwj0OJIVs AHZgHCI7ZgAxRZHrKMDyAKhoXCGgJNOdDOKfMCItLODuXZ8GQfVlCYYrAXI3BAutPRRiCYKitj9CODIr TXWpQaq8PwViCTLcXNYuRTutLTTuGPKkJLK9IFBnMZVgFS6VOqCfFKUwGGWqUpqxCZVzIZArcu9SWMTz CBIwPUMlHOPoXUNmYCKtYZytKPNnSLC7PkM7HLKgWO FwTB5VGiQdNYUxCCIwKjZgHYHgDDOgpl8VUMHhLXBcTeYoDrYrUBPfJGEjNGvaCFZrMWW8Lpk8TIXpUT FoGX2FXaIvOVqtDHAGWro3QYmwZ3r9MWZeZv0FX2Hod6AnVTTfHJFSWIzkFU7lrsSoKGRrGh8KK9tOJf h8VNZaBVF1UXBsBcOrDMrcKXSpVvUxAWQ6LyM6ImR1 VC7pPWZmJlNfEAF1G1OsVrG9L3O2DZC6WOM0ZZGaUDV6CXHaZmXeUP2LLx0UChN3ICG2mEElTk1PWmLp NJ8YCFVRO8RJTc== Procedure Social History Code Duration Value Status Description Data Source(s ) Smoking 09/09/2020 12:00:00 AM EST Former Smoker completed Former Smoker eCW1 ([facility]) Smoking 09/09/2020 12:00:00 AM EST Former Smoker completed Former Smoker eCW1 ([facility]) Smoking 08/11/2020 12:00:00 AM EST Former Smoker completed Former Smoker eCW1 ([facility]) Smoking 07/30/2020 12:00:00 AM EST Former Smoker completed Former Smoker eCW1 ([facility]) Smoking 07/30/2020 12:00:00 AM EST Former Smoker completed Former Smoker eCW1 ([facility]) Smoking 07/28/2020 12:00:00 AM EST Former Smoker completed Former Smoker eCW1 ([facility]) Vital Signs ID Date Data Source UNK Name Value Range Interpretation Code Description Data Source(s) Body weight 173 [lb_av] 173 [lb_av] eCW1 ([facility]) Body height 65 [in_i] 65 [in_i] eCW1 ([facility]) Body mass index (BMI) [Ratio] 28.79 kg/m2 28.79 kg/m2 eCW1 ([facility]) Heart rate 88 /min 88 /min eCW1 ([facility]) Respiratory rate 18 /min 18 /min eCW1 ([facility]) Body temperature 98.5 [degF] 98.5 [degF] eCW1 ( [facility]) Systolic blood pressure 110 mm[Hg] 110 mm[Hg] e CW1 ([facility]) Diastolic blood pressure 60 mm[Hg] 60 mm[Hg] eCW1 ([facility]) Body weight 174 [lb_av] 174 [lb_av] eCW1 ([facility]) Body height 65 [in_i] 65 [in_i] eCW1 ([facility]) Body mass index (BMI) [Ratio] 28.95 kg/m2 28.95 kg/m2 eCW1 ([facility]) Heart rate 75 /min 75 /min eCW1 ([facility]) Respiratory rate 18 /min 18 /min eCW1 ([facility]) Body temperature 97.2 [degF] 97.2 [degF] eCW1 ( [facility]) Systolic blood pressure 110 mm[Hg] 110 mm[Hg] e CW1 ([facility]) Diastolic blood pressure 60 mm[Hg] 60 mm[Hg] eCW1 ([facility]) Patient Treatment Plan of Care Planned Activity Planned Date Details Description Data Source (s) Sertraline 25 MG Oral Tablet 09/09/2020 12:00:00 AM EST eCW1 ([facility]) Sertraline 25 MG Oral Tablet 09/09/2020 12:00:00 AM EST eCW1 ([facility]) Clindamycin 10 MG/ML Topical Solution 08/01/2020 12:00:00 AM EST eCW1 ([facility]) Benzoyl Peroxide 0.05 MG/MG Topical Gel 08/01/2020 12:00:00 AM EST eCW1 ([facility]) Clindamycin 10 MG/ML Topical Solution 08/01/2020 12:00:00 AM EST eCW1 ([facility]) Benzoyl Peroxide 0.05 MG/MG Topical Gel 08/01/2020 12:00:00 AM EST eCW1 ([facility]) Clindamycin 10 MG/ML Topical Solution 08/01/2020 12:00:00 AM EST eCW1 ([facility]) Benzoyl Peroxide 0.05 MG/MG Topical Gel 08/01/2020 12:00:00 AM EST eCW1 ([facility]) Escitalopram 10 MG Oral Tablet 07/30/2020 12:00:00 AM EST eCW1 ([facility]) Escitalopram 10 MG Oral Tablet 07/30/2020 12:00:00 AM EST eCW1 ([facility]) Escitalopram 10 MG Oral Tablet 07/30/2020 12:00:00 AM EST eCW1 ([facility])
--- OUTSIDE RECORDS SUMMARY | 2021-07-19 11:47 | CCD ---
Author Author [facility] Organization [facility] Address Unknown Phone Unavailable Care Team Providers Care Fish Technologist Name Role Phone Maring, Deven PA Unavailable [...] is protected by Article 27-F of the [facility] Public Health law. If you continue you may have access to information: Regarding HIV / AIDS; Provided by facilities licensed or operated by the [facility] Office of Mental Health; or Provided by the [facility] Office for People With Developmental Disabilities. If such information is present, then the following [facility] mandated warning applies: This information has [...] law may result in a fine or custodial sentence or both. A general authorization for the release of medical or other information is NOT sufficient authorization for further disc losure. Allergies and Adverse Reactions Type Description Substance Reaction Status Data Source(s ) Propensity to adverse reactions NO KNOWN ALLERGIES NO KNOWN ALLERGIES [facility] Family History Family Member Name Family Member Gender Family Member Status Date o f Status Description Data Source(s) Unknown Unknown Problem MEDENT ([facility] Unknown Male Problem MEDENT ([facility]) as of 02/10/2010 Encounters Encounter Providers Location Date Indications Data Source(s ) Outpatient Attender: Deven SOUZA 05/17/20 03:50:58 PM EDT - 05/17/2021 04:22:56 PM EDT [facility]ap ([facility] ) [place] [address] [facility] [address] 10/31/2020 12:00:00 AM EST eCW1 ([facility]) Out[place] [address] [address] 09/09/2020 12:00:00 AM EST eCW1 ([facility]) [place] [address] [facility] [address] 08/15/2020 12:00:00 AM EST eCW1 ([facility]) [place] [address] [facility] [address] 07/31/2020 12:00:00 AM EST eCW1 ([facility]) [place] [address] [facility] [address] 07/30/2020 12:00:00 AM EST eCW1 ([facility]) [place] [address] [facility] [address] 07/28/2020 12:00:00 AM EST eCW1 ([facility]) [place] [address] [facility] [address] 07/18/2020 12:00:00 AM EDT eCW1 ([facility]) Outpatient Attender: HODAN ARROYO [id number] 04/17/2020 02:27:06 PM [facility] Outpatient Attender: HODAN ARROYO [id number] 04/17/2020 01:59:08 PM [facility] Outpatient Attender: HODAN JuanA-PSYQTU4 04/11/2020 12:00:00 AM [facility] Outpatient Attender: HODAN JuanA-PSYQTU4 03/28/2020 12:00:00 AM [facility] Immunizations Vaccine Date Status Description Data Source(s) influenza, recombinant, quadrIvalent,injectable, prese rvative free 07/30/2020 11:55:00 AM EST completed eCW1 ([facility]) influenza, recombinant, quadrIvalent,injectable, prese rvative free 07/30/2020 11:55:00 AM EST completed eCW1 ([facility]) influenza, recombinant, quadrIvalent,injectable, prese rvative free 07/30/2020 11:55:00 AM EST completed eCW1 ([facility]) influenza, recombinant, quadrIvalent,injectable, prese rvative free 07/30/2020 11:55:00 AM EST completed eCW1 ([facility]) influenza, recombinant, quadrIvalent,injectable, prese rvative free 07/30/2020 11:55:00 AM EST completed eCW1 ([facility]) Medications Medication Brand Name Start Date Product [...] {tablet} active Sertraline HCl 25 MG eCW1 ([facility]) Sertraline 25 MG Oral Tablet Sertraline HCl 25 MG Sertraline HCl 25 MG 09/09/2020 12:00:00 AM EST 1.0 {tablet} active Sertraline HCl 25 MG eCW1 ([facility]) Clindamycin 10 MG/ML Topical Solution Clindamycin Phos phate 1 % Clindamycin Phosphate 1 % 08/01/2020 12:00:00 AM EST acti ve Clindamycin Phosphate 1 % eCW1 ([facility]) Clindamycin 10 MG/ML Topical Solution Clindamycin Phos phate 1 % Clindamycin Phosphate 1 % 08/01/2020 12:00:00 AM EST acti ve Clindamycin Phosphate 1 % eCW1 ([facility]) Clindamycin 10 MG/ML Topical Solution Clindamycin Phos phate 1 % Clindamycin Phosphate 1 % 08/01/2020 12:00:00 AM EST acti ve Clindamycin Phosphate 1 % eCW1 ([facility]) Benzoyl Peroxide 0.05 MG/MG Topical Gel Benzoyl Peroxi de 5 % Benzoyl Peroxide 5 % 08/01/2020 12:00:00 AM EST active Benzoyl Peroxide 5 % eCW1 ([facility]) Benzoyl Peroxide 0.05 MG/MG Topical Gel Benzoyl Peroxi de 5 % Benzoyl Peroxide 5 % 08/01/2020 12:00:00 AM EST active Benzoyl Peroxide 5 % eCW1 ([facility]) 5 % 08/01/2020 12:00:00 AM EST gel 42 APPLY TO FACE DAILY APPLY TO FACE DAILY SOLD: 08/08/2020 [facility] Clindamycin 10 MG/ML Topical Solution Clindamycin Phos phate 1 % Clindamycin Phosphate 1 % 08/01/2020 12:00:00 AM EST acti ve Clindamycin Phosphate 1 % eCW1 ([facility]) Benzoyl Peroxide 0.05 MG/MG Topical Gel Benzoyl Peroxi de 5 % Benzoyl Peroxide 5 % 08/01/2020 12:00:00 AM EST active Benzoyl Peroxide 5 % eCW1 ([facility]) Benzoyl Peroxide 0.05 MG/MG Topical Gel Benzoyl Peroxi de 5 % Benzoyl Peroxide 5 % 08/01/2020 12:00:00 AM EST active Benzoyl Peroxide 5 % eCW1 ([facility]) Clindamycin 10 MG/ML Topical Solution Clindamycin Phos phate 1 % Clindamycin Phosphate 1 % 08/01/2020 12:00:00 AM EST acti ve Clindamycin Phosphate 1 % eCW1 ([facility]) 1 % 08/01/2020 12:00:00 AM EST solution 60 APPL Y TO FACE TWO TIMES A DAY APPLY TO FACE TWO TIMES A DAY SOLD: 08/08/2020 [facility] Benzoyl Peroxide 0.05 MG/MG Topical Gel Benzoyl Peroxi de 5 % Benzoyl Peroxide 5 % 08/01/2020 12:00:00 AM EST active Benzoyl Peroxide 5 % eCW1 ([facility]) Escitalopram 10 MG Oral Tablet Escitalopram Oxalate 10 MG Escitalopram Oxalate 10 MG 07/30/2020 12:00:00 AM EST 1.0 {tablet} activ e Escitalopram Oxalate 10 MG eCW1 ([facility]) Escitalopram 10 MG Oral Tablet Escitalopram Oxalate 10 MG Escitalopram Oxalate 10 MG 07/30/2020 12:00:00 AM EST 1.0 {tablet} activ e Escitalopram Oxalate 10 MG eCW1 ([facility]) Escitalopram 10 MG Oral Tablet Escitalopram Oxalate 10 MG Escitalopram Oxalate 10 MG 07/30/2020 12:00:00 AM EST 1.0 {tablet} activ e Escitalopram Oxalate 10 MG eCW1 ([facility]) Insurance Providers Payer name Policy type / Coverage type Policy ID Covered alliance party ID Covered alliance party's relationship to mendez Policy Mendez Plan Information KENY [id number] 200 [facility] [id number] Self [id number] [address] [place] [employer] [id number] [facility] [id number] MEDICAID [id number] [employer] [facility] [place] Medicaid [id number] [facility] [id number] [employer] [place] Medicaid [id number] [facility] [id number] ANSI-Commercial [id number] ANSI-Commercial [id number] ANSI-Commercial [id number] ANSI-Commercial [id number] ANSI-Commercial [id number] ANSI-Commercial [id number] ANSI-Commercial [id number] ANSI-Commercial [id number] ANSI-Commercial [id number] [facility] Part B [id number] Self [id number] [employer] [employer]/[facility] Commercial [id number] Self [id number] ANSI-Commercial [id number] ANSI-Commercial [id number] ANSI-Commercial [id number] Medicaid [place] Medigap Part B [id number] Self [id number] [place] [facility] [place] Medicaid [id number] Self [id number] [place] B [id number] Self [id number] [place] [facility] [place] Medicaid [id number] Self [id number] [employer] [id number] MO2 [id number] [employer] [id number] MO2 [id number] SELF PAY UNAVAILABLE SP UNAVAILA BLE HMO BLUE [id number] SP [id number] SELF PAY [id number] MO2 [id number] KENY [id number] SP [id number] [employer] P [id number] S [id number] [id number] [place] O [id number] S [id number] EMEDNY [id number] SP [id number] Problems, Conditions, and Diagnoses Code Display Name Description Problem Type Effective Dates Data Source(s) F41.1 73027131 Generalized anxiety disorder Problem 020 12:00:00 AM EST eCW1 ([facility]) L70.0 26609086 Acne vulgaris Problem 07/30/2020 12:00:00 AM EST eCW1 ([facility]) Surgeries/Procedures Procedure Description Date Indications Data Source(s) Immunization: Flublok Quadrivalent (18 years & older) 0.5mL IM (Influenza) 07/30/2020 12:00:00 AM EST eCW1 ([facility]) Results ID Date Data Source 164 08/14/2020 12:00:00 AM EST [facility] Name Value Range Interpretation Code Description Data Gwen rce(s) Supporting Document(s) SARS-CoV2 Rapid Antigen [facility] This lab was ordered by [facility] and reported by [facility]. ID Date Data Source FREE T4 & TSH PANEL 07/31/2020 10:40:19 AM EST eCW1 ([facility]) Name Value Range Interpretation Code Description Data Gwen rce(s) Supporting Document(s) 0.479 THYROID STIMULATING HORMONE eC W1 ([facility]) 0.97 FREE T4 eCW1 ([facility]) ID Date Data Source [id number] 06/12/2020 02:10:06 PM EDT [facility] Name Value Range Interpretation Code Description Data Gwen rce(s) Supporting Document(s) Progress Note [facility] IFWKRj7wVzYUWaUp84/VGQmyCKFpe0SaTPmiLZj4SMtgTLPxC6SsOFY7sC8pRRY5YIdMApNlIzWnXPJ3 lbm [file] Rg0K ID Date Data Source [id number] 06/12/2020 02:07:30 PM EDT [facility] Name Value Range Interpretation Code Description Data Gwen rce(s) Supporting Document(s) Progress Note [facility] DLKMKu7eIlYPEcQo36/RFNbtZJWoq2AyBYcsVNf7GOdsYQIkA9PlCXQ8yG6kVPF4KOsBKfQdOyOfOZO8 lbm [file] ICAgICAgICAgICAgICAgICAgICAgICAgICAgICAgICAgICAgICAgICAgICAgICAgICAgICAgICAgICAg ICAgICAgICAgICAgICAgICAgICAgICAgICAgICANCi AgICAgICAgICAgICAgICAgICAgICAgICAgICAgICAgICAgICAgICAgICAgICAgICAgICAgICAgICAgIC AgICAgICAgICAgICAgICAgICAgICAgICAgICAgICAgICAgICAgICANCiAgICAgICAgICAgICAgICAgIC AgICAgICAgICAgICAgICAgICAgICAgICAgICAgICAg ICAgICAgICAgICAgICAgICAgICAgICAgICAgICAgICAgICAgICAgICAgICAgICAgICANCiAgICAgICAg ICAgICAgICAgICAgICAgICAgICAgICAgICAgICAgICAgICAgICAgICAgICAgICAgICAgICAgICAgICAg ICAgICAgICAgICAgICAgICAgICAgICAgICAgICAgIC ANCiAgICAgICAgICAgICAgICAgICAgICAgICAgICAgICAgICAgICAgICAgICAgICAgICAgICAgICAgIC AgICAgICAgICAgICAgICAgICAgICAgICAgICAgICAgICAgICAgICAgICANCiAgICAgICAgICAgICAgIC AgICAgICAgICAgICAgICAgICAgICAgICAgICAgICAg ICAgICAgICAgICAgICAgICAgICAgICAgICAgICAgICAgICAgICAgICAgICAgICAgICAgICANCiAgICAg ICAgICAgICAgICAgICAgICAgICAgICAgICAgICAgICAgICAgICAgICAgICAgICAgICAgICAgICAgICAg ICAgICAgICAgICAgICAgICAgICAgICAgICAgICAgIC AgICANCiAgICAgICAgICAgICAgICAgICAgICAgICAgICAgICAgICAgICAgICAgICAgICAgICAgICAgIC AgICAgICAgICAgICAgICAgICAgICAgICAgICAgICAgICAgICAgICAgICAgICANCiAgICAgICAgICAgIC AgICAgICAgICAgICAgICAgICAgICAgICAgICAgICAg ICAgICAgICAgICAgICAgICAgICAgICAgICAgICAgICAgICAgICAgICAgICAgICAgICAgICAgICANCiAg ICAgICAgICAgICAgICAgICAgICAgICAgICAgICAgICAgICAgICAgICAgICAgICAgICAgICAgICAgICAg ICAgICAgICAgICAgICAgICAgICAgICAgICAgICAgIC AgICAgICANCjw/fMGtJ5botPSndhS4J1gdCs6ADv1EVP3xw3PnMIFvKIpnfpRhVsgNMdZwDZAyHjgYEm u1HGpnIT7AxVDrY2VlI6FnSBebZC4MRVEfPBKotTKpOXAbFNNuKcL2GMEwDHciPE3SfCPxQNojHROqZZ XnVA5IQVCeU455jmVoBZ3NLe5HMqNcKD1cek6OYCRr XVLkPgxBMdt8EZfzKA2RlZAyuMKsIESqVOXVGuMwD6qbr7WmSGJtOSPBALirRC6Se3QscOWeMEd+Pg0K XF9vm3ZoNNobMZRnOU4kzn6UXXdUGvNaD1IdaNunBSNat5ykRGUpCF8icOGpJYN8ZCghaQteMJCLNLHo moodPVYQWAfXIYO6KFtlAy4gINFyZWIhPuL0IPKLGY 1QMKTiUHCxvWSkBUSgEUAGKO6PFGkjWVX0VHTmgxQoyAGsYKgtCY4AVXRsnwBgRLIhCFDGVKw+Pg0KZW 6qn6AfUCeyGkOxWR2rzr1KMWrJXpRrB8D8kVQsE3U0EUuiQn9NIQVhSIRoNTMpWBCAKKirMS3KUY3puq Z3FN7IcMOgYXMdGZYjoFKiOKj6W91pfAZvAXwfGG3H ICA+Eliza+Kp4ODXHkACXlFHJbJwGbUKMFKfFdO8OjI7OKv3UnC2JhPD86tXjsciPiRDfySX4PGT6pYFXs YHRYFD9QyUBqoV5zsbXoFFZpSJEZKeGqU99qjSTjGOThDSIvADUjSs7JANJyQ2LqzxJvpHkegbPcDJVm HCTIAV4IJNfizyFzkCNnfUpmPF16fRfmVZ7DGx2OEj NfUQ3gkt0HmAAiEj1EAZPxHw2ROGWmDOMcRRDqKVU7SHCkBjLdJDyoMEEpDUYePIR6COSaCVLjAR0IFl YnGDQeHOElNwvnAISwTSGaas4IMNWsQZTiSOq6UQBeBLCdZZHlRFjyTUJvUMVlLOW0NPRhETVqSZ0SXi XxRYKkQNJtNkhqEVHtOJPptj1YFWUuZTZyGWAuDvZu CXGsAQUjZWisDGFtIOKcRXuyLQVlSLLkCO5BSoEjOJKjUSF7OZxuFBFsUQOocf4RUTUbZWEsVwh3WDDh KMUqXNRgDPnrBZPhMOVuROA2LJWoATLvJA7YSbAvUIKsYQJzTddbAWIqSNQmso6AIBOkBDUfJBPxHJBe WEQcQMAzTXsjTGVtUHY2QbS5WOZdJJNgRW8UWhIfEY BvKBBmZTrtTOVvMADclq7XSWKzQLErVnYvUZPxNGEzHEMqJXdsQEMyJKH3Rtv8RVToREWfCS7FQdOtDH prUQQNOvq2FEugN5v1GHIlCj3OD2Npr7DzVHOyYPAOXKfvGB9trgLmWCYyLy9XY6dBBje5GZG1EzXnGL P3Ice4UeHoL9ByJLPmUyQmXXDoIlBqQA2qBMwzPHlq REHpTnd8QLikG6K9JHGpQzSzMHQ5IKAmVyV5HcWyRF2QEf4NOgC7VYC3rWHfYt8SKtJvUm7CLTNYS1VF Cg== ID Date Data Source [id number] 06/04/2020 12:15:11 PM EDT [facility] Name Value Range Interpretation Code Description Data Gwen rce(s) Supporting Document(s) Progress Note [facility] XDHMKe4cCiNWIrSf64/QAVemVMDuw2JcGVmmPLk0AIouJEGrV5QeJXJ8xB4zVJA2JGeFRrGaPjVoLGN3 lbm VkAsmMUeVqJHBgPprRYsPeURrjPpntbSSlIW9HnWI5IAXjO53vWSRqKKXeY9DvNEBzNZq+Fw8TRABikT UvRC8BMyuG2Tubs6b3GE1wlF7BURPAGnmXI7yX91n1k1TXTut4MRXgdBvZSNyZBuke2v6/XeBamqh6ib 5HZw63bW0ghx/d9KM21GlM/vtDDLJESinq/5woOc7Y 1VJ8/BBNGGJ6M9d1vEmQU4B2Vvok0T+N+syDH1Xk+NdBv79TDv73WCvaiPBhOxDpFu2+Ayde/N2T2d8qA [file] ICAgICAgICAgICAgICAgICAgICAgICAgICAgICAgICAgICAgICAgICAgICAgICAgICAgICAgICAgICAg ICAgICAgICAgICAgICAgICAgICAgICAgICAgICAgIC XyJYTzIX0VCGZiFKLlLEFgIZDvAUDuOMZuBCUkMHGlOESwBAYfKWTrTXSdLBUbUGLqHBIxJHLhQSUkVH VuUCWpAQUhLNJmDUXfWPKlHYMlCBKqSFYiIFIhNUAcHKWpCGGgKJGyFAOoJHQiEC0JVVZdFWUwLDFpCA AgICAgICAgICAgICAgICAgICAgICAgICAgICAgICAg BADqBDGzEYKyJPDdIYPeYCNmQYZiICLhHIGhRGErXXCrGGHaMBPsLTZjLWEgEYApMTHuUKAlHJTdKK9T ICAgICAgICAgICAgICAgICAgICAgICAgICAgICAgICAgICAgICAgICAgICAgICAgICAgICAgICAgICAg ICAgICAgICAgICAgICAgICAgICAgICAgICAgICAgIC AiMDEtCOWtJJ7EDMApGNJbCSKvRALlLKHyJUMxGJNfTNUcRGLjBUToCOVlFPLhVHItPTRsIDGmWTBkXC QvTTZmBIJlMZRsICBbYXLgCOIcYEBgHOWyIZMzLYYdEFDgQIGkGLNgMVSbFHUoYFLlFO8TODOlOCQxXQ AgICAgICAgICAgICAgICAgICAgICAgICAgICAgICAg ICAgICAgICAgICAgICAgICAgICAgICAgICAgICAgICAgICAgICAgICAgICAgICAgICAgICAgICAgICAg QU9AYPYfVNOpNVFrWOEjMKEnRMNwJUJySVCeKIQuSFJpMNYkLTMeQJBqAMRaYJLsLHRsVXGbEIBjLAGd ICAgICAgICAgICAgICAgICAgICAgICAgICAgICAgIC SxWXEeIUZxBBMwHI8UXTHcWPPmRUDbWYFyKEGeORVrAGLyPHJzLSVlVVWcZMScFOYsARLhUWDjBTWtWA KfMUUtBWOePPFsUKXpWVTiRAJoCVAuMZPnFRGnCXHqZRNtTUYaAKQsBAUdFFNqTEBoOJTaRE6RCIElJT AgICAgICAgICAgICAgICAgICAgICAgICAgICAgICAg ICAgICAgICAgICAgICAgICAgICAgICAgICAgICAgICAgICAgICAgICAgICAgICAgICAgICAgICAgICAg AJEkVW6YCWCpGUOjWWXkWDTbJHYkXARmPIYlDTTzCDQfTQJpSERaATSmFCQcYDHxNNJpXTErYIXaIHZq ICAgICAgICAgICAgICAgICAgICAgICAgICAgICAgIC TeHSXzCRVqGHKiKHYgFV7PAL26fQUyh4N2GKCbOS7wcfi/Dr1IRIipihIdqALjXF6PMtZpZX0ydb2JZo PlYY3kff6QSCdMYtVoR1I2sXZkFBTkLDZHLpGqW64mMBoaOz36FHakRNOfCnHkWGb1Nz5VXwSsQ7zzRY KsZzU4KKAjHmQcIJzlMO0Dr0FgsDVoNCd+Eh7DHL3l f7PwBMneTAVmTT5wqm6KKVvLGkMcT1WtlzI3JHQ5YTBfNz2SEPEaFVXemTJyQQIsAXZMRkYiQ6DeqR81 IDENCj4+KBbebeZoSdpYJqY0UYPag5AiFBj9IS9LBNLnTOb7iJQiRXRlF0Sxw4OzNn23QRUnZepcSexk dQHJVDbdjNe7iDVsDEqSTRJxATUwUy2qDb5nBBQmIQ X8BrUcJLFUMU9LLDYlIQXpqLXnYNAoLSTJPG7AIMedKIH1BSDyaqYrgQHcAUikTV3VAVMelpBjKQScLK BSDQo+Vt7XWF8bo0MlYLpwKsRyWG3sgt3CSDwWDxRgT0Y8wGBzN4R6BUlrVd2UMRWaAVMnKMHnXADGRU elWA1BCB6ptpI9BZ7WzAAwRKAdKWKkuZLuALn0O20k pEPnTFejHQ7RMBR+Eliza+Zt7SOIBkKXIgDAApZjJoFZTFJkPbB9TeS6LQk0WmI5SvYB09uXiyjrIxHYdj OE9GXR0tEPKwWDUVXO4XpGJfyF2ukyAdILRnKQFJQvFeK82xrIEcWKUeSAHcSHPpGg0IDSQcD5HtxnEh nCjcfnWyYWHqAKSFUI4QBJgebnYxxRDeiVgwWL42sB hoFF0EPd2SXyAhOS9det9WnVBdOt0KKDQkGb4BVQCzSECrNXPsEXM2ZVIwOaVnZLawOQYzGEKsLDY3SH PjCBBnTF0CVgGzNJShLGSkGEavYUFzBJVhte9ECZLyCGDwDLu9CjKgJVQdZXDyLNzrEIVsHUGtIGB3NE JnVZQwCH2XNyMsGHKjPGWiHiviZTPiKBHwvy1RAROl OITiHME3NZOiYCLoSIVbMQtqRBMoGSEdQHZkFOCsYJSxUR6GDpDtEKSlNQQ0DSRhLORdWALfwi1SOWYb HQAyTqe4ZuIcBWEvCJIlUOuyPVHpBUUfAHA5YUVoGRXbXH9FCbFfADDiCOOmCiLgNAAcIUAeml5SFMMw LLUlMXZjRoPjMOHkQQBlSSozPAPlVUF2KaC1HGMbPY LwPM7PXzAmFGEzIQDrSnTaPVAbRGRaik2UXJOwWMScBzQzMiFbROYnWKRoHUatUAGfKPW3Vzw7CKTcHX QlOS6KLdSvIKmyUPIRAag0SPztH1g1CONhDc3FD4Vpx0LlNFUiQNVPWAjcTK7ntdCfTQAlMq7IL2rORd svP9MlVJyxOBCiPIX3OFVkONFjIHG2JMBuDTE0VHz4 Em2cLTKkLDNjA0K1VST0MrE9SUWeENG5ZUAaAHP0FaK3RWVnNoKiPC5QLz9JWwK2BPR2mUNgDb0XIcUe OH1JYZCLB5AXLo== ID Date Data Source [id number] 06/04/2020 12:05:31 PM EDT [facility] Name Value Range Interpretation Code Description Data Gwen rce(s) Supporting Document(s) Progress Note [facility] FMJEXq9nAyYXQgBc02/RSQwdHVUzo2LyOTjoISl0KIttLFOlY0AiLIQ6fB0cROF0PYbCHsCaBpAnIYW5 lbm BxMxyCHrTkARBbIprUTcBtSKpvIlvuuDZcGP6EoBM6KNOjY68uUNOrOWOtP1YvOKBdUNR+Ti1MSMPaeP VoXJ1OBmwX3Wutl7u6KY1qaS2MUVHOGwnPH52FvTjVkbOJ8jDiarG19ET08AQxfimmp1/8GPBnas1pzx Vh+rQEiHVwpXsOLy+pQ0cI//DQSBJgaUV5f8cWsEEe aim+/afbcmQ7t0nesfxYB6twNn8fbUkD/xJUS9SypC7QzrcNWgm5HpTKvTHrKyOcIn2+Ayde/X2K3igxY [file] ICAgICAgICAgICAgICAgICAgICAgICAgICAgICAgICAgICAgICAgICAgICAgICAgICAgICAgICAgICAg ICAgICAgICAgICAgICAgICAgICAgICAgICAgICAgIC AgICAgICANCiAgICAgICAgICAgICAgICAgICAgICAgICAgICAgICAgICAgICAgICAgICAgICAgICAgIC AgICAgICAgICAgICAgICAgICAgICAgICAgICAgICAgICAgICAgICAgICAgICAgICANCiAgICAgICAgIC AgICAgICAgICAgICAgICAgICAgICAgICAgICAgICAg ICAgICAgICAgICAgICAgICAgICAgICAgICAgICAgICAgICAgICAgICAgICAgICAgICAgICAgICAgICAN CiAgICAgICAgICAgICAgICAgICAgICAgICAgICAgICAgICAgICAgICAgICAgICAgICAgICAgICAgICAg ICAgICAgICAgICAgICAgICAgICAgICAgICAgICAgIC AgICAgICAgICANCiAgICAgICAgICAgICAgICAgICAgICAgICAgICAgICAgICAgICAgICAgICAgICAgIC AgICAgICAgICAgICAgICAgICAgICAgICAgICAgICAgICAgICAgICAgICAgICAgICAgICANCiAgICAgIC AgICAgICAgICAgICAgICAgICAgICAgICAgICAgICAg ICAgICAgICAgICAgICAgICAgICAgICAgICAgICAgICAgICAgICAgICAgICAgICAgICAgICAgICAgICAg ICANCiAgICAgICAgICAgICAgICAgICAgICAgICAgICAgICAgICAgICAgICAgICAgICAgICAgICAgICAg ICAgICAgICAgICAgICAgICAgICAgICAgICAgICAgIC AgICAgICAgICAgICANCiAgICAgICAgICAgICAgICAgICAgICAgICAgICAgICAgICAgICAgICAgICAgIC AgICAgICAgICAgICAgICAgICAgICAgICAgICAgICAgICAgICAgICAgICAgICAgICAgICAgICANCiAgIC AgICAgICAgICAgICAgICAgICAgICAgICAgICAgICAg ICAgICAgICAgICAgICAgICAgICAgICAgICAgICAgICAgICAgICAgICAgICAgICAgICAgICAgICAgICAg ICAgICANCiAgICAgICAgICAgICAgICAgICAgICAgICAgICAgICAgICAgICAgICAgICAgICAgICAgICAg ICAgICAgICAgICAgICAgICAgICAgICAgICAgICAgIC AgICAgICAgICAgICAgICANCjw/tPMlX8vsmSDwtbC6L7yvPs1MLx9IUM7bg1NhSCIrBXruvyDiEbaZYs NgTMYhFqcLJnv7GBedOJ2RqOPnU7AcI8JwJMrjDV7NKXFoQVYxyGSwJFNbCHFkMmB8PHDyAVheJM3GiC PkHJuqBOXrXNRxDD2UCHVyR742wbRbTJ1ESw6RCmTk YC3myw9YVHSyZLMjRpuPVbk5THmnXJ2EkQAcfUCwQZIlQQORYzCyJ7wvv4UmKWIaDCUAQQoyIN6Ix0Jj dCAxDQo+Kf7WAN0ql1QxULnaQATkVU5iez2ZPLmFHwIgO5KwyQyxOHYzq5deQMLfNR2eyYHrUET6ZXry rRvvQMYVONWfpqqcATPEJJxTLHJ7SKkaDm6yFNZeHK KoMmIoTIMWTZ9QRYBuQNVnnJWtLWDcGJPUOY4ZTLzvXCA4TRCxwlEmsGSjCMbfAS5NUXKvdoYrVEGuPE BSDQo+Oy8MTZ7xt1JwAYmsRmUqQX5fyb8QBSnHLgVoB1E1kYLhM3Q1LIkrVg8JZAKxHBAxVJLgGJKNFU gvED8ACS2xkwM1EE0AoJYzJBNzYDXltIXgGIs5M57s mVXuRWdyEI4YAGG+Eliza+Zx6ORQHzHLSsADWnTzApBSFNLrLjA2EdV9EKb5NcP4EaGV66mFmtunStVFrl SE9NVO0vGLXoEMRSBA8XbMKjtZ0voaAiKANqFZCYLdPnZ99biFCmSHPzTPOnFOAkCq7ZQJKwB7FasdVc uXjbhcSlKVDrGRUHFB5DYTwifpQuyDDrnRbrUN40vF chIA8RWd2IKtAuMB9ofl0OyFReTe4YTWTaPj8YRDLzVNYcADYfNEX1IZTgKrUuBVntAXEpPWHvJET8XZ MjDSPtSC8HNwCnHETwOOMbXJwdHNIgGRZkmk2MEMCoVMRxMXp7GDYbQTHbISEzGEufBEYfKFOqRTQ1WJ ZvPEYzIH6SLmZtZRCfEGTbUzdtLTBwSRUdvg8IQCYz YANzLDW0MoIbLIRnIXXuCYenSSDsWIXoVKQhSKCjZZDrWV4HSxLcBYAxKLN4YPiiLDZrMGLejh3GXVXa DBLlJqs1CrLoUOOqGOLaQXllLLShSKKnNRB4PZGmCMUmSD6BPzSwIVDePRAkUzmgNDXlCRWowf6QUVLq NZKeVQRbNIRqUUFoKJTkBYneAIUtCRA8HbI4DEErPZ MxQX9DOrGpGEMeXQPrKwWaGLYkUWLftr8TZGNjRBDsUaJuIpFiMDHqNWLsXPkkTMOdFDZ6Cwd5SWIhPT PkBU1GVpZyDPtiBFBGQna6HZdmZ9h7LWUuQf4UH5Fzt1FiVXSxFKQSCOjuHB0qqgHlACBhIk5IK4wIIn w7XYRtNOZ4ZMLdSsDiJTivGADoCeCvXHE8YnI3MeO9 WC3iQWBgMoKpAPX1K4AaUkS9R3U5KWQ9SLR6PZZvZRU0YODeLbMmIN1LSc0PEuO6MQY2oICmKu0SRyYe [id number]== Procedure Social History Code Duration Value Status Description Data Source(s ) Smoking 09/09/2020 12:00:00 AM EST Former Smoker completed Former Smoker eCW1 ([facility]) Smoking 09/09/2020 12:00:00 AM EST Former Smoker completed Former Smoker eCW1 ([facility]) Smoking 08/11/2020 12:00:00 AM EST Former Smoker completed Former Smoker eCW1 ([facility]) Smoking 07/30/2020 12:00:00 AM EST Former Smoker completed Former Smoker eCW1 ([facility]) Smoking 07/30/2020 12:00:00 AM EST Former Smoker completed Former Smoker eCW1 ([facility]) Smoking 07/28/2020 12:00:00 AM EST Former Smoker completed Former Smoker eCW1 ([facility]) Vital Signs ID Date Data Source UNK Name Value Range Interpretation Code Description Data Source(s) Body weight 173 [lb_av] 173 [lb_av] eCW1 ([facility]) Body height 65 [in_i] 65 [in_i] eCW1 ([facility]) Body mass index (BMI) [Ratio] 28.79 kg/m2 28.79 kg/m2 eCW1 ([facility]) Heart rate 88 /min 88 /min eCW1 ([facility]) Respiratory rate 18 /min 18 /min eCW1 ([facility]) Body temperature 98.5 [degF] 98.5 [degF] eCW1 ( [facility]) Systolic blood pressure 110 mm[Hg] 110 mm[Hg] e CW1 ([facility]) Diastolic blood pressure 60 mm[Hg] 60 mm[Hg] eCW1 ([facility]) Body weight 174 [lb_av] 174 [lb_av] eCW1 ([facility]) Body height 65 [in_i] 65 [in_i] eCW1 ([facility]) Body mass index (BMI) [Ratio] 28.95 kg/m2 28.95 kg/m2 eCW1 ([facility]) Heart rate 75 /min 75 /min eCW1 ([facility]) Respiratory rate 18 /min 18 /min eCW1 ([facility]) Body temperature 97.2 [degF] 97.2 [degF] eCW1 ( [facility]) Systolic blood pressure 110 mm[Hg] 110 mm[Hg] e CW1 ([facility]) Diastolic blood pressure 60 mm[Hg] 60 mm[Hg] eCW1 ([facility]) Patient Treatment Plan of Care Planned Activity Planned Date Details Description Data Source (s) Sertraline 25 MG Oral Tablet 09/09/2020 12:00:00 AM EST eCW1 ([facility]) Sertraline 25 MG Oral Tablet 09/09/2020 12:00:00 AM EST eCW1 ([facility]) Clindamycin 10 MG/ML Topical Solution 08/01/2020 12:00:00 AM EST eCW1 ([facility]) Benzoyl Peroxide 0.05 MG/MG Topical Gel 08/01/2020 12:00:00 AM EST eCW1 ([facility]) Clindamycin 10 MG/ML Topical Solution 08/01/2020 12:00:00 AM EST eCW1 ([facility]) Benzoyl Peroxide 0.05 MG/MG Topical Gel 08/01/2020 12:00:00 AM EST eCW1 ([facility]) Clindamycin 10 MG/ML Topical Solution 08/01/2020 12:00:00 AM EST [email or web address] ([facility]) Benzoyl Peroxide 0.05 MG/MG Topical Gel 08/01/2020 12:00:00 AM EST [email or web address] ([facility]) Escitalopram 10 MG Oral Tablet 07/30/2020 12:00:00 AM EST [email or web address] ([facility]) Escitalopram 10 MG Oral Tablet 07/30/2020 12:00:00 AM EST [email or web address] ([facility]) Escitalopram 10 MG Oral Tablet 07/30/2020 12:00:00 AM EST [email or web address] ([facility])
== END 2021-07-19 11:48 | disposition left against medical advice (07) ==
LOC: M ED 11:21
DX: Z53.29 Procedure and treatment not carried out because of patient's decision for other reasons (principal)

== ENCOUNTER → 2022-01-12 | Outpatient (CLI) | payer OTHER ==
[2022-01-12 18:05] LABS: BASO # 0.1 10^3/uL (0.0-0.2); BASO % 0.7 % (0.0-1.0); EOS # 0.3 10^3/uL (0.0-0.5); HEMATOCRIT 41.3 % (36.0-47.0); HEMOGLOBIN 13.4 g/dl (12.0-15.5); LYMPH % 41.2 % (24.0-44.0); MEAN CORPUSCULAR HGB CONC 32.4 g/dl (32.0-36.5); MEAN CORPUSCULAR VOLUME 95.6 fl (80.0-96.0); MONO # 0.6 10^3/uL (0.0-0.8); MONO % 5.9 % (2.0-8.0); NEUTROPHILS # 4.8 10^3/uL (1.5-8.5); NEUTROPHILS % 48.8 % (36.0-66.0); PLATELET COUNT, AUTOMATED 292 10^3/uL (150-450); RED BLOOD COUNT 4.32 10^6/uL (4.00-5.40); WHITE BLOOD COUNT 9.8 10^3/uL (4.0-10.0)
[2022-01-12 18:24] LABS: HCG, SERUM QUALITATIVE NEGATIVE (NEGATIVE)
[2022-01-12 18:32] LABS: ALBUMIN 3.8 GM/DL (3.2-5.2); ALT/SGPT 18 U/L (12-78); BILIRUBIN,TOTAL 0.3 MG/DL (0.2-1.0); BLOOD UREA NITROGEN 10 MG/DL (7-18); CALCIUM LEVEL 8.7 MG/DL (8.5-10.1); CARBON DIOXIDE LEVEL 29 MEQ/L (21-32); CHLORIDE LEVEL 110 MEQ/L (98-107); CREATININE FOR GFR 0.84 MG/DL (0.55-1.30); FREE T4 0.91 NG/DL (0.76-1.46); GLOMERULAR FILTRATION RATE > 60.0 (>60); GLUCOSE, FASTING 81 MG/DL (70-100); IRON (FE) 77 UG/DL (50-170); POTASSIUM SERUM 4.5 MEQ/L (3.5-5.1); SODIUM LEVEL 141 MEQ/L (136-145); TOTAL PROTEIN 6.9 GM/DL (6.4-8.2)
== END ==
LOC: M PLALAB 15:54
PROVIDERS: ATTEND Physician Assistant
DX: N92.6 Irregular menstruation, unspecified (principal)

== ENCOUNTER 2022-12-27 18:28 | Emergency (ER) | payer OTHER ==
[~2022-12-27] VITALS: Ht 167.6 cm; Wt 80.0 kg
[2022-12-27] MEDS ORDERED: ONDANSETRON 4MG 2ML VIAL IV ONE (19:40)
[2022-12-27] MEDS ORDERED: NS 1,000 ML IV ONE (19:40)
[2022-12-27 20:36] LABS: BASO % 0.4 % (0.0-1.0); EOS # 0.1 10^3/uL (0.0-0.5); EOS % 0.6 % (0.0-3.0); HEMATOCRIT 42.6 % (36.0-47.0); HEMOGLOBIN 14.2 g/dl (12.0-15.5); LYMPH # 0.6 10^3/uL (1.5-5.0); LYMPH % 5.7 % (24.0-44.0); MEAN CORPUSCULAR HEMOGLOBIN 30.4 pg (27.0-33.0); MEAN CORPUSCULAR HGB CONC 33.3 g/dl (32.0-36.5); MEAN CORPUSCULAR VOLUME 91.2 fl (80.0-96.0); MONO # 0.5 10^3/uL (0.0-0.8); MONO % 4.7 % (2.0-8.0); NEUTROPHILS # 9.2 10^3/uL (1.5-8.5); NEUTROPHILS % 88.2 % (36.0-66.0); PLATELET COUNT, AUTOMATED 272 10^3/uL (150-450); RED BLOOD COUNT 4.67 10^6/uL (4.00-5.40); WHITE BLOOD COUNT 10.4 10^3/uL (4.0-10.0)
[2022-12-27 20:53] LABS: LIPASE 24 U/L (12-53)
[2022-12-27 20:55] LABS: ALBUMIN 3.8 G/DL (3.2-5.2); ALKALINE PHOSPHATASE 63 U/L (46-116); ALT/SGPT < 9 U/L (7.0-40); AST/SGOT 9 U/L (<34); BILIRUBIN,DIRECT 0.2 MG/DL (<0.4); BILIRUBIN,TOTAL 0.6 MG/DL (0.3-1.2); TOTAL PROTEIN 6.7 G/DL (5.7-8.2)
[2022-12-27] MEDS ORDERED: ISOVUE-370 76% 100ML VIAL As Ordered ONE (20:59)
[2022-12-27 21:10] LABS: RSV AMPLIFICATION NEGATIVE (NEGATIVE)
[2022-12-27] MEDS ORDERED: ONDANSETRON 4MG ORAL DISINTEGRATING TAB PO ONE (22:20)
[2022-12-27] MEDS ORDERED: ONDA4TAB6 PO (22:22)
[2022-12-27 22:35] VITALS: BP 110/72
== END 2022-12-27 22:36 | disposition home or self-care (01) ==
LOC: M ED 18:28
DX: A09 Infectious gastroenteritis and colitis, unspecified (principal)
CPT/HCPCS: 74177; 80047; 80076; 81001; 83605; 83690; 84702; 85025; 87086; 87631; 96374; 99284; J2405; Q9967

== ENCOUNTER → 2023-02-11 | Outpatient (REF) | payer OTHER ==
[~2023-02-11] MED LIST changes: +ONDA4TAB6 PO
== END ==
LOC: M SFHCPLAZ 16:59
PROVIDERS: ATTEND Physician Assistant
DX: J02.9 Acute pharyngitis, unspecified (principal)

== ENCOUNTER 2023-03-22 09:03 | Emergency (ER) | payer OTHER ==
[~2023-03-22] VITALS: Ht 167.6 cm; Wt 84.1 kg
[2023-03-22 11:44] LABS: BASO % 0.3 % (0.0-1.0); EOS % 0.3 % (0.0-3.0); HEMATOCRIT 42.6 % (36.0-47.0); HEMOGLOBIN 14.2 g/dl (12.0-15.5); LYMPH # 1.8 10^3/uL (1.5-5.0); LYMPH % 20.6 % (24.0-44.0); MEAN CORPUSCULAR HEMOGLOBIN 30.1 pg (27.0-33.0); MEAN CORPUSCULAR HGB CONC 33.3 g/dl (32.0-36.5); MEAN CORPUSCULAR VOLUME 90.4 fl (80.0-96.0); MONO # 0.6 10^3/uL (0.0-0.8); MONO % 6.5 % (2.0-8.0); NEUTROPHILS # 6.3 10^3/uL (1.5-8.5); PLATELET COUNT, AUTOMATED 255 10^3/uL (150-450); RED BLOOD COUNT 4.71 10^6/uL (4.00-5.40); WHITE BLOOD COUNT 8.7 10^3/uL (4.0-10.0)
[2023-03-22] MEDS ORDERED: NS 1,000 ML IV ONE (11:45)
[2023-03-22 12:02] LABS: LIPASE 23 U/L (12-53)
[2023-03-22 12:04] LABS: ALBUMIN 4.1 G/DL (3.2-5.2); ALKALINE PHOSPHATASE 64 U/L (46-116); ALT/SGPT 11 U/L (7.0-40); AST/SGOT < 8 U/L (<34); BILIRUBIN,DIRECT 0.1 MG/DL (<0.4); BILIRUBIN,TOTAL 0.4 MG/DL (0.3-1.2); BLOOD UREA NITROGEN 8 MG/DL (9-23); CALCIUM LEVEL 8.9 MG/DL (8.5-10.1); CARBON DIOXIDE LEVEL 22 MMOL/L (20-31); CHLORIDE LEVEL 104 MMOL/L (98-107); CREATININE FOR GFR 0.67 MG/DL (0.55-1.30); GLOMERULAR FILTRATION RATE > 60.0 (>60); GLUCOSE, FASTING 92 MG/DL (60-100); POTASSIUM SERUM 3.9 MMOL/L (3.5-5.1); SODIUM LEVEL 135 MMOL/L (136-145); TOTAL PROTEIN 7.2 G/DL (5.7-8.2)
[2023-03-22 12:18] LABS: HCG, SERUM QUANTITATIVE 64406.3 MIU/ML (<4.2)
[2023-03-22 13:44] VITALS: BP 122/61; TEMP 98.9; O2SAT 99
[2023-03-22] MEDS ORDERED: ONDANSETRON 4MG 2ML VIAL IV ONE (13:50)
[2023-03-22] MEDS ORDERED: ONDA4TAB6 PO (14:00)
[2023-03-22] MEDS ORDERED: AZITHROMYCIN 250MG TABLET PO ONE (14:00)
== END 2023-03-22 14:09 | disposition home or self-care (01) ==
LOC: M ED 09:03
DX: A04.1 Enterotoxigenic Escherichia coli infection (principal); A08.4 Viral intestinal infection, unspecified; R51.9 Headache, unspecified; F32.A Depression, unspecified; F41.9 Anxiety disorder, unspecified; Z79.899 Other long term (current) drug therapy
CPT/HCPCS: 80048; 80076; 83690; 84702; 85025; 87507; 96374; 99284; J2405

== ENCOUNTER → 2023-05-17 | Outpatient (CLI) | payer OTHER | LOC: M PLALAB 09:13 | PROVIDERS: ATTEND Obstetrics & Gynecology | DX: O36.5930 Maternal care for other known or suspected poor fetal growth, third trimester, not applicable or unspecified (principal); Z3A.14 14 weeks gestation of pregnancy ==

== ENCOUNTER → 2023-08-05 | Outpatient (CLI) | payer OTHER | LOC: M WHC 11:31 | PROVIDERS: ATTEND Obstetrics & Gynecology | DX: Z34.92 Encounter for supervision of normal pregnancy, unspecified, second trimester (principal); Z3A.25 25 weeks gestation of pregnancy ==

== ENCOUNTER → 2023-09-05 | Outpatient (CLI) | payer OTHER | LOC: M WHC 09:08 | PROVIDERS: ATTEND Advanced Practice Midwife | DX: O99.283 Endocrine, nutritional and metabolic diseases complicating pregnancy, third trimester (principal); Z36.89 Encounter for other specified antenatal screening; Z3A.30 30 weeks gestation of pregnancy ==

== ENCOUNTER → 2023-10-21 | Outpatient (REF) | payer OTHER | LOC: M SFHCWAGY 09:50 | PROVIDERS: ATTEND Advanced Practice Midwife | DX: Z34.93 Encounter for supervision of normal pregnancy, unspecified, third trimester (principal) ==

== ENCOUNTER 2023-10-28 12:16 | Inpatient (IN) | payer OTHER ==
[~2023-10-28] VITALS: Ht 167.6 cm; Wt 107.0 kg
[2023-10-28] VITALS (40 sets, daily range): BP systolic 114–155; BP diastolic 58–85
[2023-10-28] MEDS ORDERED: TUMS500C PO (12:31)
[2023-10-28] MEDS ORDERED: BUSP5TA PO (12:31)
[2023-10-28] MEDS ORDERED: LACTATED RINGER'S 1000 ML IV STA (12:45)
[2023-10-28] MEDS ORDERED: METHYLERGONOVINE MALEATE 0.2MG/ML 1ML VIAL IM PRN (12:45)
[2023-10-28] MEDS ORDERED: PENICILLIN G POTASSIUM 5 MU IV 5 MU in D5W MINI-BAG PLUS 100 ML IV STA (12:45)
[2023-10-28] MEDS ORDERED: CARBOPROST TROMETHAMINE 250 MCG/ML AMP IM PRN (12:45)
[2023-10-28] MEDS ORDERED: LIDOCAINE 1% MDV 20ML VIAL INFIL PRN (12:45)
[2023-10-28] MEDS ORDERED: OXYTOCIN DRIP 30 UNITS in IV 1 EA IV PRN (12:45)
[2023-10-28] MEDS ORDERED: TRANEXAMIC ACID INJection 1,000 MG in NS 100 ML IV PRN (12:45)
[2023-10-28] MEDS ORDERED: HOME MED LIST COMPLETE! XX SCH (12:50)
[2023-10-28] MEDS: LR 1,000 ML IV SCH ×2 (12:59→16:54)
[2023-10-28] MEDS ORDERED: OXYTOCIN DRIP 30 UNITS in IV 1 EA IV SCH (13:05)
[2023-10-28 13:14] LABS: HEMOGLOBIN 10.4 g/dl (12.0-15.5); MEAN CORPUSCULAR HEMOGLOBIN 28.3 pg (27.0-33.0); MEAN CORPUSCULAR HGB CONC 32.5 g/dl (32.0-36.5); PLATELET COUNT, AUTOMATED 296 10^3/uL (150-450); RED BLOOD COUNT 3.68 10^6/uL (4.00-5.40); WHITE BLOOD COUNT 10.8 10^3/uL (4.0-10.0)
[2023-10-28] MEDS: PEN G POT 3,000,000 UNIT/50 ML 3,000,000 UNIT in IV 1 EA IV SCH ×2 (16:53→20:59)
[2023-10-28] MEDS ORDERED: ePHEDrine SULFATE 25 MG/5 ML(5MG/ML) SYRINGE IVP PRN (18:15)
[2023-10-28] MEDS ORDERED: FENTANYL/ROPIVACAINE/NACL BAG 100 ML EPIDURAL SCH (18:15)
[2023-10-28] MEDS ORDERED: EPIDURAL/PCA KEYS XX PRN (18:15)
[2023-10-28] MEDS ORDERED: LR 500 ML IV PRN (18:15)
[2023-10-28] MEDS ORDERED: ONDANSETRON 4MG 2ML VIAL IV PRN (18:15)
[2023-10-28] MEDS ORDERED: NALOXONE INJ 0.4MG/1ML VIAL IV PRN (18:15)
[2023-10-28] MEDS ORDERED: diphenhydrAMINE 50MG/ML VIAL IV PRN (18:15)
[2023-10-28] MEDS ORDERED: ACETAMINOPHEN 500 MG TAB PO PRN (22:25)
[2023-10-28] MEDS ORDERED: ANUSOL HC CREAM 30GM TOP PRN (22:25)
[2023-10-28] MEDS ORDERED: ACETAMINOPHEN TAB 650MG DOSE (2X325MG) PO PRN (22:25)
[2023-10-28] MEDS ORDERED: MOM 30ML SUSPENSION UDC PO PRN (22:25)
[2023-10-28] MEDS ORDERED: DOCUSATE SODIUM 100MG CAPSULE PO PRN (22:25)
[2023-10-28] MEDS ORDERED: RHOGAM 300MCG (1500IU) INJ IM SCH (22:25)
[2023-10-28] MEDS ORDERED: IBUPROFEN 600MG TAB PO PRN (22:25)
[2023-10-28] MEDS ORDERED: METHYLERGONOVINE MALEATE 0.2 MG TAB PO PRN (22:25)
[2023-10-28] MEDS ORDERED: DIBUCAINE 1% OINTMENT 30GM TOP PRN (22:25)
[2023-10-28] MEDS: IBUPROFEN 800 MG TAB PO PRN (23:49)
[2023-10-29 06:00] VITALS: BP 115/58
[2023-10-29] MEDS: PRENATAL VITAMINS CHEWABLE TABLET PO SCH (07:42)
[2023-10-29] MEDS: IBUPROFEN 800 MG TAB PO PRN (07:45)
[2023-10-29 18:00] VITALS: BP 134/64; O2SAT 99
[2023-10-30 06:41] VITALS: BP 126/63; O2SAT 98
[2023-10-30] MEDS: PRENATAL VITAMINS CHEWABLE TABLET PO SCH (08:17)
[2023-10-30] MEDS ORDERED: MEASLES,MUMPS,RUBELLA VACCINE INJ (MMR-II) SC.IMMUN ONE (09:00)
== END 2023-10-30 12:40 | disposition home or self-care (01) | DRG 560 ==
LOC: M LDI 12:16 → M OBS 10-29 04:06
PROVIDERS: ADMIT Advanced Practice Midwife; ATTEND Advanced Practice Midwife
PROC: 10E0XZZ Delivery of Products of Conception, External Approach (ICD-10-PCS; principal; 2023-10-28)
PROC: 0UQMXZZ Repair Vulva, External Approach (ICD-10-PCS; 2023-10-28)
PROC: 0HQ9XZZ Repair Perineum Skin, External Approach (ICD-10-PCS; 2023-10-28)
DX: O42.02 Full-term premature rupture of membranes, onset of labor within 24 hours of rupture (principal); O99.344 Other mental disorders complicating childbirth; F41.9 Anxiety disorder, unspecified; Z3A.37 37 weeks gestation of pregnancy; O99.824 Streptococcus B carrier state complicating childbirth; O69.81X0 Labor and delivery complicated by cord around neck, without compression, not applicable or unspecified; Z37.0 Single live birth; O70.0 First degree perineal laceration during delivery; O71.82 Other specified trauma to perineum and vulva

== ENCOUNTER → 2024-02-24 | Outpatient (CLI) | payer OTHER ==
[~2024-02-24] MED LIST changes: +BUSP5TA PO; +ONDA-282 PO; -ONDA4TAB6 PO; +TUMS500C PO
[2024-02-24 15:48] LABS: BASO # 0.1 10^3/uL (0.0-0.2); BASO % 0.7 % (0.0-1.0); EOS # 0.1 10^3/uL (0.0-0.5); EOS % 1.5 % (0.0-3.0); HEMATOCRIT 38.6 % (36.0-47.0); HEMOGLOBIN 12.2 g/dl (12.0-15.5); LYMPH # 2.8 10^3/uL (1.5-5.0); LYMPH % 31.5 % (24.0-44.0); MEAN CORPUSCULAR HEMOGLOBIN 28.4 pg (27.0-33.0); MEAN CORPUSCULAR HGB CONC 31.6 g/dl (32.0-36.5); MEAN CORPUSCULAR VOLUME 89.8 fl (80.0-96.0); MONO # 0.6 10^3/uL (0.0-0.8); MONO % 6.7 % (2.0-8.0); NEUTROPHILS # 5.3 10^3/uL (1.5-8.5); NEUTROPHILS % 59.4 % (36.0-66.0); PLATELET COUNT, AUTOMATED 303 10^3/uL (150-450); WHITE BLOOD COUNT 8.9 10^3/uL (4.0-10.0)
[2024-02-24 16:22] LABS: ALBUMIN 3.5 G/DL (3.2-5.2); ALKALINE PHOSPHATASE 76 U/L (46-116); ALT/SGPT 11 U/L (7.0-40); AST/SGOT < 8 U/L (<34); BILIRUBIN,TOTAL 0.5 MG/DL (0.3-1.2); BLOOD UREA NITROGEN 10 MG/DL (9-23); CALCIUM LEVEL 8.6 MG/DL (8.5-10.1); CARBON DIOXIDE LEVEL 27 MMOL/L (20-31); CHLORIDE LEVEL 110 MMOL/L (98-107); CREATININE FOR GFR 0.88 MG/DL (0.55-1.30); GLOMERULAR FILTRATION RATE > 60.0 (>60); GLUCOSE, FASTING 85 MG/DL (60-100); POTASSIUM SERUM 4.2 MMOL/L (3.5-5.1); SODIUM LEVEL 142 MMOL/L (136-145); TOTAL PROTEIN 6.3 G/DL (5.7-8.2)
[2024-02-24 16:27] LABS: FREE T4 0.98 NG/DL (0.89-1.76); THYROID STIMULATING HORMONE 0.323 uIU/ML (0.55-4.78)
== END ==
LOC: M PLAIMG 12:16
PROVIDERS: ATTEND Nurse Practitioner Family
DX: M54.2 Cervicalgia (principal); M54.50 Low back pain, unspecified; E05.90 Thyrotoxicosis, unspecified without thyrotoxic crisis or storm; M54.6 Pain in thoracic spine

== ENCOUNTER 2024-04-13 15:33 | Day surgery (SDC) | payer OTHER ==
[~2024-04-13] VITALS: Ht 167.6 cm; Wt 86.2 kg
[2024-04-13 13:30] LABS: HEMATOCRIT 38.8 % (36.0-47.0); HEMOGLOBIN 12.6 g/dl (12.0-15.5); MEAN CORPUSCULAR HEMOGLOBIN 28.8 pg (27.0-33.0); MEAN CORPUSCULAR HGB CONC 32.5 g/dl (32.0-36.5); MEAN CORPUSCULAR VOLUME 88.6 fl (80.0-96.0); PLATELET COUNT, AUTOMATED 276 10^3/uL (150-450); RED BLOOD COUNT 4.38 10^6/uL (4.00-5.40); WHITE BLOOD COUNT 8.5 10^3/uL (4.0-10.0)
[2024-04-13] MEDS: SILVER NITRATE APPLICATOR (1 = QTY 10) As Ordered ONE (15:21)
[~2024-04-13 15:33] MED LIST changes: +ACETAMINOPHEN 1000MG 100ML IV BAG As Ordered ONE; +HYDR50TA70 PO; +IBUP200C28 PO; +KETOROLAC 60MG 2ML VIAL As Ordered ONE; +LIDOCAINE 2% 100MG/5ML SDV (FOR ANES.) As Ordered ONE; +MIDAZOLAM INJ 2MG/2ML VIAL As Ordered ONE; +ONDANSETRON 4MG 2ML VIAL As Ordered ONE; +ROCURONIUM BROMIDE 50MG/5ML VIAL As Ordered ONE; +SEVOFLURANE INHAL SOLN 250 ML BTL As Ordered ONE; +SUGAMMADEX SODIUM 500 MG/5 ML VIAL (BRIDION) As Ordered ONE; +fentaNYL 100 MCG/2 ML INJECTION As Ordered ONE; +fentaNYL 100 MCG/2 ML INJECTION IV PRN; +propofoL 200 MG/20 ML VIAL As Ordered ONE
[2024-04-13] MEDS ORDERED: PERC5TAB12 PO (15:36)
[2024-04-13] MEDS: HYDROMORPHONE HCL 0.5 MG/ 0.5 ML SYRINGE IV PRN (15:47)
[2024-04-13] MEDS: oxyCODONE 5MG TAB PO PRN (15:48)
[2024-04-13] MEDS: ONDANSETRON 4MG 2ML VIAL IV PRN (16:14)
[2024-04-13] MEDS: METOCLOPRAMIDE INJ 10MG/2ML VIAL IV PRN (16:24)
[2024-04-13 16:41] VITALS: BP 123/66; TEMP 97.8; O2SAT 99
== END 2024-04-13 16:59 | disposition home or self-care (01) ==
LOC: M SDC 15:33
PROVIDERS: ATTEND Obstetrics & Gynecology
DX: Z30.2 Encounter for sterilization (principal); N73.6 Female pelvic peritoneal adhesions (postinfective); E05.90 Thyrotoxicosis, unspecified without thyrotoxic crisis or storm; Z79.899 Other long term (current) drug therapy; G43.909 Migraine, unspecified, not intractable, without status migrainosus; F41.9 Anxiety disorder, unspecified; F32.A Depression, unspecified; F17.290 Nicotine dependence, other tobacco product, uncomplicated
CPT/HCPCS: 36415; 58661; 85027; 86850; 86900; 86901; 88302; J0665; J1100; J1170; J1885; J2250; J2405; J2765; J3010

== ENCOUNTER → 2024-05-23 | Outpatient (REF) | payer OTHER ==
[~2024-05-23] MED LIST changes: -ACETAMINOPHEN 1000MG 100ML IV BAG As Ordered ONE; -KETOROLAC 60MG 2ML VIAL As Ordered ONE; -LIDOCAINE 2% 100MG/5ML SDV (FOR ANES.) As Ordered ONE; -MIDAZOLAM INJ 2MG/2ML VIAL As Ordered ONE; -ONDANSETRON 4MG 2ML VIAL As Ordered ONE; +PERC5TAB12 PO; -ROCURONIUM BROMIDE 50MG/5ML VIAL As Ordered ONE; -SEVOFLURANE INHAL SOLN 250 ML BTL As Ordered ONE; -SUGAMMADEX SODIUM 500 MG/5 ML VIAL (BRIDION) As Ordered ONE; -fentaNYL 100 MCG/2 ML INJECTION As Ordered ONE; -fentaNYL 100 MCG/2 ML INJECTION IV PRN; -propofoL 200 MG/20 ML VIAL As Ordered ONE
== END ==
LOC: M SFHCWAGY 09:38
PROVIDERS: ATTEND Nurse Practitioner Family
DX: Z12.4 Encounter for screening for malignant neoplasm of cervix (principal)

== ENCOUNTER → 2024-05-24 | Outpatient (REF) | payer OTHER | LOC: M PLALAB 13:59 | PROVIDERS: ATTEND Nurse Practitioner Family | DX: Z12.4 Encounter for screening for malignant neoplasm of cervix (principal); Z53.9 Procedure and treatment not carried out, unspecified reason ==

== ENCOUNTER → 2025-07-05 | Outpatient (REF) | payer OTHER | LOC: M SFHCPLAZ 16:41 | PROVIDERS: ATTEND Family Medicine | DX: Z53.9 Procedure and treatment not carried out, unspecified reason (principal) ==

== ENCOUNTER → 2025-07-12 | Outpatient (CLI) | payer OTHER ==
[2025-07-12 10:22] LABS: BASO # 0.1 10^3/uL (0.0-0.2); BASO % 0.7 % (0.0-1.0); EOS # 0.2 10^3/uL (0.0-0.5); EOS % 2.3 % (0.0-3.0); LYMPH # 2.5 10^3/uL (1.5-5.0); LYMPH % 34.8 % (24.0-44.0); MONO # 0.4 10^3/uL (0.0-0.8); MONO % 5.9 % (2.0-8.0); NEUTROPHILS # 4.1 10^3/uL (1.5-8.5); NEUTROPHILS % 56.0 % (36.0-66.0); PLATELET COUNT, AUTOMATED 299 10^3/uL (150-450)
[2025-07-12 10:56] LABS: ALT/SGPT < 9 U/L (7.0-40); AST/SGOT < 8 U/L (<34); CALCIUM LEVEL 8.9 MG/DL (8.5-10.1); CARBON DIOXIDE LEVEL 28 MMOL/L (20-31); CHLORIDE LEVEL 103 MMOL/L (98-107); CHOLESTEROL LEVEL 228 MG/DL (<200); CHOLESTEROL RISK RATIO 4.91 (<5); CREATININE FOR GFR 0.84 MG/DL (0.55-1.30); FREE T4 1.33 NG/DL (0.89-1.76); GLOMERULAR FILTRATION RATE > 90.0 (>60); LDL CHOLESTEROL 161.8 MG/DL (<100); NON-HDL-C 181.6 MG/DL; POTASSIUM SERUM 4.2 MMOL/L (3.5-5.1); SODIUM LEVEL 141 MMOL/L (136-145); TRIGLYCERIDES LEVEL 99 MG/DL (<150)
== END ==
LOC: M LAB 09:06
DX: M25.531 Pain in right wrist (principal); R53.83 Other fatigue; Z13.220 Encounter for screening for lipoid disorders